=== PATIENT | female | born 1955 | race Caucasian/White ===

== ENCOUNTER → 2016-08-21 12:29 | Outpatient (CLI) | payer OTHER ==
[2015-12-18 16:10] VITALS: BMI 25.3
[~2016-08-21 12:29] MED LIST: BACLOFEN10 MG PO; BENTYL 20 MG TA20 MG PO; ESTRACE 0.5 MG0.5 MG PO; FUROSEMIDE20 MG PO; HYDROCODON-ACE1 EAC6 PO; HYDROCODON-ACE1 EAC7 PO; LANOXIN250 MCG PO; MIRALAX17 GM PO; OXYCODONE HCL5 MG PO; SOMA250 MG PO; VOLTAREN25 MG PO; XANAX0.25 MG PO
== END | disposition home or self-care (01) ==
LOC: D.CT 10:00
DX: R10.11 Right upper quadrant pain (principal); R10.84 Generalized abdominal pain

== ENCOUNTER 2016-08-21 15:23 | Inpatient (IN) | payer OTHER ==
[~2016-08-21] VITALS: Ht 162.6 cm; Wt 67.1 kg
[~2016-08-21 15:23] MED LIST changes: -BACLOFEN10 MG PO; -BENTYL 20 MG TA20 MG PO; -OXYCODONE HCL5 MG PO
[2016-08-21 17:05] LABS: BASOPHILS 0.4 % (0.0-2.0); EOSINOPHILS 3.3 % (0-7); HEMATOCRIT 48.7 % (36.0-48.0); HEMOGLOBIN 16.4 g/dL (12-16); IMMATURE GRANULOCYTES 0.2 % (0-5); LYMPHOCYTES 27.5 % (15-50); MCHC 33.7 g/dL (31.0-37.0); MCV 94.9 fL (80.0-100.0); MEAN PLATELET VOLUME 10.9 fL (7.4-10.4); MONOCYTES 6.6 % (2-11); PLATELET COUNT 259 10x3/uL (130-400); RBC 5.13 10x6/uL (4.00-5.40); RDW 12.2 % (11.5-14.5); WBC 9.9 10x3/uL (4.8-10.8)
[2016-08-21] MEDS ORDERED: BENTYL 20 MG TA20 MG PO (17:22)
[2016-08-21] MEDS ORDERED: BACLOFEN10 MG PO (17:23)
[2016-08-21 17:24] VITALS: BP 127/73; BMI 25.4
[2016-08-21 17:29] LABS: ALKALINE PHOSPHATASE 65 U/L (46-116); ALT (SGPT) 59 U/L (10-68); BILIRUBIN - TOTAL 0.43 mg/dL (0.2-1.3); CALC OSMOLALITY 276 mosm/kg (275-300); CALCIUM 9.4 mg/dL (8.5-10.1); CARBON DIOXIDE 28.6 mmol/L (21.0-32.0); CHLORIDE - SERUM 103 mmol/L (98-107); CREATININE - SERUM 0.6 mg/dL (0.6-1.3); POTASSIUM - SERUM 4.2 mmol/L (3.5-5.1); PROTEIN - SERUM 7.4 g/dL (6.4-8.2); SODIUM 140 mmol/L (136-145); UREA NITROGEN 6 mg/dL (7-18); eGFR NON AFRICAN AMERICAN > 90 mL/min (90-120)
[2016-08-21 17:30] LABS: GLUCOSE 98 mg/dL (74-106)
[2016-08-21 17:40] LABS: INR 1.2 (0.85-1.17); PROTIME 15.1 SECONDS (11.6-15.0)
[2016-08-21 17:41] LABS: APTT 32.4 SECONDS (22.8-39.4)
--- NOTE | 2016-08-21 19:50 | NUR ---
ASSESSMENT COMPLETE, A&O, AMBULATING IN ROOM, GAIT STEADY. REMINDED PT OF NOTHING TO EAT OR DRINK AFTER MN FOR PROCEDURE IN AM, PT REPEATED UNDERSTANDING. FAMILY AT BED SIDE, BED LOW, CL IN REACH. WILL CONT TO MONITOR.
[2016-08-21 20:00] VITALS: BP 104/57
--- NOTE | 2016-08-21 20:32 | NUR ---
HS MEDS GIVEN, FRESH ICE WATER AND JELLO GIVEN AT PT REQUEST.
[2016-08-22] VITALS: BP 117/67
--- NOTE | 2016-08-22 02:27 | NUR ---
LYING IN BED WITH CALL LIGHT IN REACH. WILL CONTINUE WITH PLAN OF CARE.
[2016-08-22 04:00] VITALS: BP 110/61
--- NOTE | 2016-08-22 04:56 | NUR ---
RESTING WITH EYES CLOSED, RESPERATIONS EVEN, NO S/S DISTRESS NOTED.
[2016-08-22 06:38] LABS: BASOPHILS 0.4 % (0.0-2.0); EOSINOPHILS 4.8 % (0-7); HEMATOCRIT 44.8 % (36.0-48.0); HEMOGLOBIN 14.5 g/dL (12-16); IMMATURE GRANULOCYTES 0.2 % (0-5); LYMPHOCYTES 37.8 % (15-50); MCH 30.8 pg (26.0-34.0); MCHC 32.4 g/dL (31.0-37.0); MCV 95.1 fL (80.0-100.0); MEAN PLATELET VOLUME 10.5 fL (7.4-10.4); MONOCYTES 7.6 % (2-11); NEUTROPHILS 49.2 % (40-80); PLATELET COUNT 235 10x3/uL (130-400); RBC 4.71 10x6/uL (4.00-5.40); RDW 12.3 % (11.5-14.5); WBC 9.1 10x3/uL (4.8-10.8)
[2016-08-22 07:01] LABS: ALBUMIN 3.4 g/dL (3.4-5.0); ALKALINE PHOSPHATASE 54 U/L (46-116); AMYLASE - SERUM 58 U/L (25-115); BILIRUBIN - TOTAL 0.58 mg/dL (0.2-1.3); CALC OSMOLALITY 274 mosm/kg (275-300); CALCIUM 8.8 mg/dL (8.5-10.1); CARBON DIOXIDE 26.6 mmol/L (21.0-32.0); CHLORIDE - SERUM 104 mmol/L (98-107); CHOL - HDL RATIO 6.2 ratio (2.3-4.1); CHOLESTEROL, TOTAL 192 mg/dL (0-200); CREATININE - SERUM 0.7 mg/dL (0.6-1.3); GLUCOSE 113 mg/dL (74-106); HDL CHOLESTEROL 31 mg/dL (32-96); LDL CHOLESTEROL 124 mg/dL (0-100); LIPASE 229 U/L (73-393); POTASSIUM - SERUM 3.8 mmol/L (3.5-5.1); SODIUM 138 mmol/L (136-145); TRIGLYCERIDE 185 mg/dL (30-200); UREA NITROGEN 6 mg/dL (7-18); eGFR NON AFRICAN AMERICAN 90 mL/min (90-120)
[2016-08-22 07:02] LABS: ALT (SGPT) 40 U/L (10-68)
--- NOTE | 2016-08-22 09:10 | CN ---
PATIENT NAME:VIRGIL KHAN MEDICAL RECORD: [id number] : 51 LOCATION:D. D.2139 ADMIT DATE: 08/21/16 ACCOUNT: [id number] CONSULTING PHYSICIAN: MARY CABRAL MD REFERRING PHYSICIAN: MATHEW MCMAHON MD DATE OF CONSULTATION: 08/21/2016 Surgical Consultation REASON FOR CONSULTATION: Appendicitis and abdominal mass. HISTORY OF PRESENT ILLNESS: Ms. Khan is a 60-year-old female, who was admitted to the hospital today with acute ST-T findings of appendicitis and intra-abdominal mass. The patient states she had acute onset of pain on Friday. The pain got progressively worse until we should speak on Friday. The pain has been constant since its onset on Friday. It fluctuates in intensity. She was seen by her primary care physician today who sent [facility] for CT of the abdomen and pelvis. She says that during that time, she had subjective fever and night sweats. She denies any history of weight loss. She had nausea, no vomiting, no dysuria. She denies any melena or hematochezia. She says she has been having alternating diarrhea and constipation. She has never had a colonoscopy. No history of EGD. She had a cholecystectomy 9 months ago from myself. There were no intraabdominal masses at that time. PAST MEDICAL HISTORY: Nicotine dependence and palpitations. PAST SURGICAL HISTORY: Hysterectomy and laparoscopic cholecystectomy. ALLERGIES: CHICKEN AND ____. HOME MEDICATIONS: Include digoxin, estradiol, alprazolam, hydrocodone, diclofenac, soma and Lasix. FAMILY HISTORY: Her father, uncle and brother all of heart related illnesses. She had a brother with lung disease. SOCIAL HISTORY: She is a current every day smoker. She drink alcohol occasionally. Denies any drug use. REVIEW OF SYSTEMS: A 12-point review of systems was obtained, pertinent positive and negative as per the HPI. PHYSICAL EXAMINATION: GENERAL: Well-developed and well-nourished female in moderate distress. EYES: Extraocular muscles intact. Sclerae are anicteric. EARS, NOSE AND THROAT: Mucous membranes dry. She has normal dentition. CARDIOVASCULAR: Normal sinus rhythm. LUNGS: She has got decreased breath sounds bilaterally with wheezing. ABDOMEN: Firm. She is focally tender in the right lower quadrant as well as the left lower quadrant. She has got localized guarding and rebound. Hypoactive bowel sounds. SKIN: Warm and dry. Normal turgor. EXTREMITIES: She is neurovascularly intact. Minimal peripheral edema. NEUROLOGIC: She is a GCS of 15. No focal deficits. CONSULT REPORT [id number] ERINVIRGIL Kellie LABORATORY DATA: Pending. CT of the abdomen and pelvis images were personally by the radiologist, Dr. Jones. The patient appears to have acute appendicitis as well as diffuse intraabdominal masses consistent with carcinomatosis. IMPRESSION: A 60-year-old female with abdominal pain, acute appendicitis with peritonitis and intra-abdominal mass and nicotine dependence. PLAN: 1. The patient admitted med-surg. 2. IV fluid resuscitation. 3. NPO, on bowel rest. 4. IV antibiotics. 5. IV narcotics for pain control. 6. IV antiemetics. 7. Chest x-ray and EKG. 8. Obtain consent for laparoscopic appendectomy with intraabdominal biopsies. I discussed with the patient the possibility of the prognosis of carcinomatosis. All questions were answered. Risks and benefits of the procedure were discussed with the patient. TRANSINT:[id number] Voice Confirmation ID: [id number] DOCUMENT ID: [id number] MARY CABRAL MD at 0910 CC: [id number] DICTATION DATE: 08/21/161737 MACHINE OILER: 08/21/16 190 ADM IN [facility] [address] [place] [address]
--- NOTE | 2016-08-22 09:53 | OP ---
PATIENT NAME: VIRGIL KHAN MEDICAL RECORD: [id number] :51 LOCATION:D.M2 D.2139 ADMISSION DATE:08/21/16 SURGEON: MARY CABRAL MD DATE OF OPERATION: 08/22/2016 SURGEON: Mary Cabral MD PREOPERATIVE DIAGNOSES: 1. Acute appendicitis. 2. Peritoneal carcinomatosis. POSTOPERATIVE DIAGNOSES: 1. Acute appendicitis. 2. Peritoneal carcinomatosis. PROCEDURE PERFORMED: 1. Laparoscopic appendectomy. 2. Laparoscopic liver biopsy. 3. Laparoscopic peritoneal biopsy. ANESTHESIA: General. COMPLICATIONS: None. SPECIMENS: 1. Appendix. 2. Peritoneal biopsy. 3. Liver biopsy. 4. Peritoneal cytology. ESTIMATED BLOOD LOSS: 30 cc. COMPLICATIONS: None. OPERATIVE COURSE: After consent was obtained, the patient was taken to the operating room and placed in supine position on the operating table. Next, general anesthesia was given via endotracheal intubation after the timeout was performed that confirmed the correct patient and procedure. The abdomen was prepped and draped in typical sterile fashion. Local anesthetic was injected just above the umbilicus. A stab incision was made with an 11-blade scalpel. Using a 5-mm bladeless optical trocar, the abdomen was entered under direct laparoscopic vision. Adequate pneumoperitoneum was achieved. The abdominal cavity was inspected. There was gross peritoneal studding as well as omental caking involving the liver, peritoneal surface and the majority of the omentum. Next, all 3 additional trocars were placed, a 12-mm trocar in the left lower quadrant and 5-mm trocar in the suprapubic position, 5-mm trocar in the right lower quadrant. The appendix was retrocecal and put in the hepatic flexure. The cecum was mobilized. The white line of Toldt was taken down using electrocautery. The liver was retracted and the hepatic flexure was mobilized. A mesenteric window was then created at the base of the appendix using a linear cutting stapler. The base of the appendix was transected with a blue load staple. The mesoappendix was taken with 2 firings of the white load stapler. The appendix was placed in the specimen bag and sent for permanent pathology. The right upper quadrant was then copiously irrigated and suctioned. Careful attention was paid to hemostasis, it was obtained with a combination of OPERATIVE REPORT [id number] VIRGIL KHAN electrocautdarrion. A laparoscopic liver biopsy was then performed using electrocautery. A peritoneal biopsy was also then performed using [place] dissector and electrocautery. A slight peritoneal fluid was then suctioned out the abdomen and sent for cytology. The abdominal cavity was inspected. No evidence of bowel injury. No evidence of bleeding. The 12-mm trocars removed. The 12-mm trocar site was closed and 0 Vicryl suture and a Mathew-Mingo suture passer under direct laparoscopic vision. At this time, the abdominal cavity was again inspected, all remaining fluid was irrigated. There was no evidence of bleeding and no evidence of bowel injury. All remaining trocars were removed. Abdomen was desufflated. Trocars removed. Skin was closed with 4-0 Monocryl, Mastisol and Steri-Strips. At the end of the case, all needle and instrument counts were correct. No complications occurred. The patient was extubated and transferred to the PACU in stable condition. TRANSINT:[id number] Voice Confirmation ID: [id number] DOCUMENT ID: [id number] MARY CABRAL MD at 0953 CC: [id number] DICTATION DATE: 08/22/16908 TEACHING ARTIST: 08/22/16 0928 ADM IN [facility] [facility] [id number] [place] [address]
[2016-08-22 10:27] VITALS: BP 126/62
--- NOTE | 2016-08-22 10:41 | HP ---
PATIENT: VIRGIL KHAN MEDICAL RECORD: [id number] ACCOUNT: [id number] LOCATION:[facility] D.2139 : 53 ADMISSION DATE: 08/21/16 HISTORY AND PHYSICAL EXAMINATION HISTORY OF PRESENT ILLNESS: Ms. Khan is a 60-year-old white female patient of Dr. Slater who is complaining of right lower quadrant abdominal pain, nonradiating and has been going on and off 6 months ago. She had her gallbladder removed back in December. She characterized it as sharp. She is seen today for a CT of the abdomen, which reveals acute appendicitis, also has findings that are worrisome for possible carcinomatosis. She has several masses. She has been seen in consultation by Dr. Tolentino and plans for appendectomy may have been made with a biopsy of these lesions. PAST MEDICAL HISTORY: Significant for palpitations, IBS, spastic colon and chronic low back pain. PAST SURGICAL HISTORY: Include a hysterectomy and cholecystectomy in December ____. ALLERGIES: None known. HOME MEDICATIONS: Include alprazolam 0.5 1/2 half b.i.d., estradiol 2 mg daily, Lanoxin 0.25 daily, potassium chloride 10 mEq b.i.d., [place] 10 t.i.d. p.r.n., baclofen 10 one to two t.i.d. p.r.n., dicyclomine 10 t.i.d. p.r.n. and Lasix 40 b.i.d. FAMILY HISTORY: Noncontributory. SOCIAL HISTORY: The patient is a smoker. REVIEW OF SYSTEMS: Significant for abdominal pain. She denies any weight loss, if anything has had weight gain. She denies any change in bladder or bowel habits. No chest pain or shortness of breath. PHYSICAL EXAMINATION: HEAD: Normocephalic. NECK: Soft. HEART: Regular. LUNGS: Clear. ABDOMEN: Soft. She has tenderness over McBurney's point. Bowel sounds are noted. No real masses are appreciated. IMPRESSION: 1. Acute appendicitis. 2. Possible abdominal mass worrisome for carcinomatosis. 3. Tobacco abuse with probable chronic obstructive pulmonary disease. 4. History of "irritable bowel". PLAN: IV antibiotics, surgical consult, scheduled for appendectomy with biopsy of lesions. TRANSINT:[id number] Voice Confirmation ID: [id number] DOCUMENT ID: [id number] HISTORY AND PHYSICAL [id number] VIRGIL KHAN MATTHEW DO at 1041 CC: [id number] DICTATION DATE: 08/21/161814 HIDE HOUSE SUPERVISOR: 08/21/16 [address] [facility] [address] [place] [id number]
[2016-08-22 12:11] VITALS: BP 115/57
[2016-08-22 12:49] VITALS: Ht 162.6 cm; Wt 67.1 kg
[2016-08-22 16:00] VITALS: BP 114/64
--- NOTE | 2016-08-22 19:48 | NUR ---
0645- PATIENT OFF THE UNIT TO SURGERY. 1030- PATIENT RETURNED TO THE UNIT ACCOMPANIED BY RECOVERY ROOM NURSES. SHE IS EASILY AROUSED, ON 3 LITERS OF O2 PER NC, 4 ABDOMINAL INCISIONS ARE CLOSED WITH STERISTRIPS. IVF INFUSING TO THE RIGHT FA. 1123- PATIENT HAS BEEN DRINKING SIPS OF WATER. REQUESTS PAIN MEDICATION. MS GIVEN IV. 1320- PATIENT GIVEN ORAL MEDICATIONS. IV ABTS GIVEN. 1510- PATIENT GIVEN MS FOR CONTINUED C/O PAIN. FAMILY AT THE BEDSIDE. 1701- PILLOW GIVEN FOR SPLINTING. SHE IS EMOTHIONAL FROM THE NEWS SHE WAS GIVEN TODAY REGARDING HER DIAGNOSIS. WE DISCUSSED HER VIEW OF THE SITUATION. 1800- HER USED CAR LOT ATTENDANT IS CONTROLLING HER PAIN. SHE HAS BECOME NAUSEATED AND TREATED. 1830- MANY FAMILY MEMBERS AT THE BEDSIDE.
[2016-08-22 20:00] VITALS: BP 105/55
--- NOTE | 2016-08-22 23:29 | NUR ---
PATIENT RESTING QUIETLY IN BED FAMILY AT BED SIDE, NO ACUTE DISTRESS NOTED.
[2016-08-23] VITALS: BP 97/54
--- NOTE | 2016-08-23 01:22 | NUR ---
PATIENT RESTING QUIETLY IN BED FAMILY AT BEDSIDE, NO DISTRESS NOTED/
--- NOTE | 2016-08-23 03:19 | NUR ---
PATIENT ASSISTED TO THE RESTROOM BY MILLER HEAD WET PROCESS, NO DISTRESS NOTED.
[2016-08-23 04:00] VITALS: BP 92/56
--- NOTE | 2016-08-23 05:04 | NUR ---
CALL LIGHT IN REACH, WILL CONTINUE WITH PLAN OF CARE.
[2016-08-23 07:25] LABS: BASOPHILS 0.2 % (0.0-2.0); HEMATOCRIT 42.2 % (36.0-48.0); HEMOGLOBIN 13.5 g/dL (12-16); IMMATURE GRANULOCYTES 0.3 % (0-5); LYMPHOCYTES 17.2 % (15-50); MEAN PLATELET VOLUME 10.9 fL (7.4-10.4); MONOCYTES 6.9 % (2-11); NEUTROPHILS 74.4 % (40-80); PLATELET COUNT 225 10x3/uL (130-400); RBC 4.35 10x6/uL (4.00-5.40); RDW 12.5 % (11.5-14.5); WBC 15.6 10x3/uL (4.8-10.8)
[2016-08-23 07:52] LABS: ALKALINE PHOSPHATASE 46 U/L (46-116); CALCIUM 8.4 mg/dL (8.5-10.1); CARBON DIOXIDE 28.4 mmol/L (21.0-32.0); CHLORIDE - SERUM 101 mmol/L (98-107); CREATININE - SERUM 0.7 mg/dL (0.6-1.3); GLUCOSE 113 mg/dL (74-106); POTASSIUM - SERUM 4.1 mmol/L (3.5-5.1); PROTEIN - SERUM 6.5 g/dL (6.4-8.2); SODIUM 137 mmol/L (136-145); eGFR NON AFRICAN AMERICAN 90 mL/min (90-120)
[2016-08-23 07:53] LABS: ALT (SGPT) 60 U/L (10-68); CALC OSMOLALITY 271 mosm/kg (275-300); UREA NITROGEN 4 mg/dL (7-18)
--- NOTE | 2016-08-23 07:58 | NUR ---
0710-AM ROUNDING DONE WTIH PATIENT IN RESTROOM VOIDING. DENIES NEEDS AT PRESENT TIME. IV SEEN TO RIGHT FA WITH NS INFUSING AT KVO. ON 2L PER NC, ON HEART MONITOR SHOWING SR, HR 85. WILL CONTINUE TO MONITOR.
[2016-08-23 09:07] VITALS: BP 122/56
--- NOTE | 2016-08-23 11:44 | NUR ---
0840 ANSWERED PATIENT'S LIGHT PATIENT HAD VOMITED 200 CC OF GREEN EMESIS. MEDICATED PATIENT WITH ZOFRAN 4 MG IV. PATIENT STATED SHE HAD EATEN JELLO THIS AM FOR BREAKFAST.
[2016-08-23 12:16] VITALS: BP 102/55
--- NOTE | 2016-08-23 13:30 | NUR ---
IV INFILTRATED - REPOSITIONED TO LEFT FOREARM
--- NOTE | 2016-08-23 14:07 | NUR ---
Nutrition follow-up: Diet: Clear liquids Pt still with nausea, vomiting Labs reviewed Wt: 148# Pt will need nutrition support started if diet unable to advance and/or nausea continues. Recommend ProcalAmine PPN @ 100 ml/hr with 20% 250 ml intralipids every other day. RDN following.
--- NOTE | 2016-08-23 15:36 | NUR ---
UP TO BATHROOM - VOID - NO BM - BACK TO BED - BED LOW - SCDS BACK ON - MEDS GIVEN
--- NOTE | 2016-08-23 16:27 | NUR ---
REPOSITIONED - RESTING IN BED - FAMILY AT BEDSIDE - DENIES ANY NEEDS AT THIS TIME
[2016-08-23 16:56] VITALS: BP 146/73
--- NOTE | 2016-08-23 17:21 | NUR ---
Patient Name: VIRGIL KHAN Admission Status: Urgent Accout number: [id number] Admission Date: 08-21-2016 : 1955 Admission Diagnosis:UNSPECIFIED ACUTE APPENDICITIS Attending: NATHANAEL Current LOS: 2 Anticipated DC Date: 08-24-2016 Planned Disposition: Home Primary Insurance: [employer] O POS Discharge Planning Comments: * Is the patient Alert and Oriented? Yes 0 * How many steps to enter\exit or inside your home? 4 0 * PCP DR. MCMAHON 0 * Pharmacy [facility] 0 * Preadmission Environment Home with Family 0 * ADLs Independent 0 * Equipment Cane Walker Wheelchair 0 * Other Equipment NO MEDICAL EQUIPMENT PROVIDER PREFERENCE 0 * List name and contact numbers for known caregivers / representatives who currently or will assist patient after discharge: HANNA KHAN, SPOUSE, 0 * Community resources currently utilized None 0 * Please name any agencies selected above. NONE 0 * Additional services required to return to the preadmission environment? No 0 * Can the patient safely return to the preadmission environment? Yes 0 * Has this patient been hospitalized within the prior 30 days at any hospital? No 0 CM RECEIVED REQUEST FROM DR. FARFAN TO MEET WITH PT WHO HAS INSURANCE QUESTIONS. CM MET WITH PT IN ROOM TO DISCUSS DISCHARGE PLANNING AND NEEDS. PT REPORTS LIVING AT HOME INDEPENDENTLY WITH SPOUSE AND ADULT SON. PT HAS A WALKER, WHEELCHAIR AND CANE THAT WAS HER MOTHER'S BEFORE SHE PASSED. PT HAS NO MEDICAL EQUIPMENT PROVIDER PREFERENCE AND NO OUTSIDE SERVICES ASSISTING IN THE HOME. CM DISCUSSED AVAILABILITY OF HOME HEALTH, REHAB SERVICES AND MEDICAL EQUIPMENT. PT DENIES DISCHARGE NEEDS, REPORTS HER SPOUSE WILL PICK HER UP FOR DISCHARGE HOME. PT REPORTS HAVING HER FAMILY FOR EMOTIONAL SUPPORT. PT IS CONCERNED THAT HER INSURANCE WILL NOT PAY FOR NEEDED CANCER TREATMENTS. CM ADVISED PT TO CALL HER INSURANCE COMPANY SOON POSSIBLE, DIRECTED PT TO CUSTOMER SERVICE AND BENEFITS NUMBER ON BACK OF HER INSURANCE CARD. PT REPORTS SHE IS CURRENTLY ON UNEMPLOYMENT AND DOES NOT KNOW HOW MUCH LONGER HER POLICY IS IN EFFECT. CM REFERRED PT TO HER BENEFITS NUMBER ON HER INSURANCE CARD. CM DISCUSSED HOW TO ACCESS MEDICAID APPLICATION AND PT IS AWARE OF THE LOCATION OF THE [facility] DEPARTMENT OF HUMAN SERVICES OFFICE. CM DISCUSSED HOW TO EXPLORE DISABILITY THROUGH THE SOCIAL SECURITY WEBSITE AND WHERE THE SOCIAL SECURITY OFFICE IS LOCATED AT IN [place]. PT THANKED CM FOR ASSISTANCE. CM PROVIDED ALL INFORMATION IN WRITING IN ADDITION TO VERBAL DISCUSSION PT WAS VERY EMOTIONAL AT TIME OF CM CONSULT. CM PROVIDED PT WITH CM CONTACT INFORMATION. PT TO DISCHARGE HOME WITH FAMILY, DENIES DISCHARGE NEEDS AT THIS TIME. CM TO FOLLOW AND ASSIST NEEDED. Pharmacist Intern: Reagan Coleman
--- NOTE | 2016-08-23 18:51 | NUR ---
UP IN BED VISITING WITH FAMILY - DENIES ANY NEEDS AT THIS TIME
[2016-08-23 20:00] VITALS: BP 116/60
--- NOTE | 2016-08-23 21:55 | NUR ---
RESTING IN BED EYES CLOSED. AROUSES TO VOICE. ALERT ORIENTED CONVERSANT. PROVIDED IV ZOFRAN PER PT REQUEST. HELD SCHEDULED NORSANDI, PT HAS DILAUDID MATERNAL FETAL PHYSICIAN
--- NOTE | 2016-08-23 23:45 | NUR ---
RESTING IN BED RESPIRATIONS OBSERVED. EVEN AND UNLABORED. CONTINUE TO MONITOR
[2016-08-24] VITALS: BP 118/55
[2016-08-24 04:00] VITALS: BP 109/56
--- NOTE | 2016-08-24 07:47 | NUR ---
AM ROUNDING- PT LAYING IN BED ON BACK WITH EYES CLOSED RESTING. ON MONITOR SHOWING SR, HR 87. IV SEEN TO LEFT AC WITH NS RUNNING AT KVO (15CC). TEACHING MUSIC LESSONS SEEN WITH DILAUDID. DOSE IS 0.2MG [id number] WITH 4MG LOCKOUT IN FOUR HOURS. ON 02 AT 2L VIA NC. SCDS ARE ON. PT IS UP WITH ASSIST. PER REPORT FROM PUMPING STATION SUPERVISOR NURSE KWASI, PT HAD APPENDECTOMY YESTERDAY FOR APPENDICITIS PT CAME IN WITH ON 08/22/16. NO NEED AT CURRENT TIME. WILL CONTINUE TO MONITOR.
[2016-08-24 08:00] VITALS: BP 98/55
[2016-08-24 08:41] LABS: BASOPHILS 0.2 % (0.0-2.0); EOSINOPHILS 4.6 % (0-7); HEMATOCRIT 40.7 % (36.0-48.0); HEMOGLOBIN 13.4 g/dL (12-16); IMMATURE GRANULOCYTES 0.3 % (0-5); LYMPHOCYTES 14.4 % (15-50); MCH 31.4 pg (26.0-34.0); MCHC 32.9 g/dL (31.0-37.0); MCV 95.3 fL (80.0-100.0); MEAN PLATELET VOLUME 11.2 fL (7.4-10.4); MONOCYTES 6.6 % (2-11); NEUTROPHILS 73.9 % (40-80); PLATELET COUNT 218 10x3/uL (130-400); RBC 4.27 10x6/uL (4.00-5.40); RDW 12.3 % (11.5-14.5); WBC 15.4 10x3/uL (4.8-10.8)
[2016-08-24 09:07] LABS: ALBUMIN 2.9 g/dL (3.4-5.0); ALKALINE PHOSPHATASE 51 U/L (46-116); CALC OSMOLALITY 264 mosm/kg (275-300); CALCIUM 8.6 mg/dL (8.5-10.1); CARBON DIOXIDE 32.3 mmol/L (21.0-32.0); CHLORIDE - SERUM 96 mmol/L (98-107); CREATININE - SERUM 0.6 mg/dL (0.6-1.3); GLUCOSE 101 mg/dL (74-106); POTASSIUM - SERUM 3.6 mmol/L (3.5-5.1); PROTEIN - SERUM 6.7 g/dL (6.4-8.2); SODIUM 134 mmol/L (136-145); UREA NITROGEN 3 mg/dL (7-18); eGFR NON AFRICAN AMERICAN > 90 mL/min (90-120)
[2016-08-24 09:10] LABS: ALT (SGPT) 38 U/L (10-68)
[2016-08-24 12:00] VITALS: BP 99/60
--- NOTE | 2016-08-24 13:05 | NUR ---
PT IS UP WALKING WITH PHYSICAL THERAPY.
[2016-08-24 16:00] VITALS: BP 175/58
--- NOTE | 2016-08-24 18:16 | NUR ---
PT LAYING IN BED ON BACK RESTING. DENIES ANY NEED AT CURRENT TIME. FAMILY MEMBER AT BEDSIDE. WILL CONTINUE TO MONITOR.
--- NOTE | 2016-08-24 19:45 | NUR ---
INTRODUCED MYSELF TO PT PRIMARY RN FOR [facility] SHIFT. PT IS ALERT AND ORIENTED RESTING QUIETLY IN BED. RR NONLABORED WITH NC @2L IN PLACE. PT HAS A L.AC PIV WITH DRSG CDI AND SWAB CAPS IN USE. PT HAS NS @15ML/HR TO RUN WITH PUBLICATION SPECIALIST OF DILAUDID. PT DENIES ANY CURRENT PAIN AND STATES THE PUBLICATION SPECIALIST PUMP CONTROLS ALL OF HER PAIN. PTS ABDOMEN IS SLIGHTLY DISTENDED AND TENDER BUT BS ACTIVE X4. 4 SMALL INCISIONS NOTED WITH STERI STRIPS IN PLACE, CDI. PT DENIES ANY CURRENT NEEDS AT THIS TIME. CL IN REACH, BED IN LOWEST, SIDE RAILS X2. WILL CPOC.
--- NOTE | 2016-08-24 21:00 | NUR ---
ADMINISTERED NIGHTLY MEDS. PT REFUSED HER MILK OF MAGNESIUM AND STATED HER BOWELS HAVE BEEN MOVING WITHOUT ANY STRAINING OR NEED FOR A LAXATIVE. PT ALSO REFUSED HER SCHEDULED NORCO R/T MANUFACTURER PUMP PROVIDING ENOUGH PAIN RELIEF. PT RESTING AND DENIES ANY FURTHER NEEDS AT THIS TIME. CL IN REACH, BED IN LOWEST, SIDE RAILS X2. WILL CTM.
[2016-08-24 21:13] VITALS: BP 89/62
--- NOTE | 2016-08-24 23:25 | NUR ---
INITIATED PTS IVPB ZOSYN INFUSING OVER 30MINS. PT RESTING QUIETLY IN BED WITH EYES CLOSED. NO S/S OF DISTRESS OR ANY CURRENT NEEDS AT THIS TIME. CL IN REACH, WILL CTM.
[2016-08-25 00:43] VITALS: BP 101/57
--- NOTE | 2016-08-25 03:29 | NUR ---
PT RESTING QUIETLY IN BED WITH EYES CLOSED. RR NONLABORED ON RA. NO S/S OF DISTRESS OR ANY CURRENT NEEDS NOTED AT THIS TIME. WILL CTM.
[2016-08-25 05:05] VITALS: BP 115/64
--- NOTE | 2016-08-25 05:17 | NUR ---
ADMINISTERED PTS IVPB ZOSYN INFUSING OVER 30 MINS. CHANGED OUT PTS SANITATION TRUCK DRIVER SYRINGE R/T IT BEING EMPTY. PT RESTING QUIETLY IN BED ALERT AND WATCHING TV. NO FURTHER NEEDS AT THIS TIME. CL IN REACH, WILL CPOC.
[2016-08-25 06:30] LABS: BASOPHILS 0.2 % (0.0-2.0); EOSINOPHILS 6.9 % (0-7); HEMATOCRIT 39.7 % (36.0-48.0); IMMATURE GRANULOCYTES 0.2 % (0-5); LYMPHOCYTES 18.5 % (15-50); MCH 31.3 pg (26.0-34.0); MCHC 32.7 g/dL (31.0-37.0); MCV 95.4 fL (80.0-100.0); MEAN PLATELET VOLUME 10.9 fL (7.4-10.4); MONOCYTES 8.3 % (2-11); NEUTROPHILS 65.9 % (40-80); PLATELET COUNT 227 10x3/uL (130-400); RBC 4.16 10x6/uL (4.00-5.40); RDW 12.2 % (11.5-14.5)
[2016-08-25 06:39] LABS: ALBUMIN 2.8 g/dL (3.4-5.0); ALKALINE PHOSPHATASE 52 U/L (46-116); ALT (SGPT) 33 U/L (10-68); CALC OSMOLALITY 272 mosm/kg (275-300); CALCIUM 8.5 mg/dL (8.5-10.1); CARBON DIOXIDE 33.4 mmol/L (21.0-32.0); CHLORIDE - SERUM 98 mmol/L (98-107); CREATININE - SERUM 0.6 mg/dL (0.6-1.3); GLUCOSE 99 mg/dL (74-106); POTASSIUM - SERUM 3.6 mmol/L (3.5-5.1); PROTEIN - SERUM 6.1 g/dL (6.4-8.2); SODIUM 138 mmol/L (136-145); eGFR NON AFRICAN AMERICAN > 90 mL/min (90-120)
[2016-08-25 06:40] LABS: UREA NITROGEN 5 mg/dL (7-18)
--- NOTE | 2016-08-25 07:15 | NUR ---
RECEIVED REPORT. ASSUMED CARE OF PATIENT. CALL LIGHT WITHIN REACH. RESTING WITH EYES CLOSED. RESP EVEN AND UNLABORED. NO DISTRESS. SCD'S PATENT TO BILATERAL LOWER EXTREMITIES. SENIOR ENGINEERING MANAGER PUMP PATENT.
[2016-08-25 08:00] VITALS: BP 91/54
--- NOTE | 2016-08-25 09:56 | NUR ---
PATIENT OOB AMBULATING WITH PT AT THIS TIME. NO DISTRESS.
--- NOTE | 2016-08-25 11:01 | NUR ---
MEDICATED FOR NAUSEA/VOMITING AT THIS TIME.
[2016-08-25 12:00] VITALS: BP 115/68
--- NOTE | 2016-08-25 13:18 | NUR ---
PATIENT RESTING IN BED WITH EYES OPEN. STATES SHE IS TIRED. ENCOURAGED PATIENT TO TRY AND NAP WHILE SHE HAS THE OPPORTUNITY. FAMILY AT BEDSIDE. CALL LIGHT WITHIN REACH. NO DISTRESS.
--- NOTE | 2016-08-25 15:07 | NUR ---
MEDICATED FOR NAUSEA AT THIS TIME. SITTING IN BED. NO ACUTE DISTRESS. FAMILY AT BEDSIDE.
[2016-08-25 16:00] VITALS: BP 102/57
--- NOTE | 2016-08-25 18:24 | NUR ---
PATIENT SITTING UP IN BED WITH ATTENTION TOWARD TELEVISION. CALL LIGHT WITHIN REACH. DENIES NEEDS. NO DISTRESS.
[2016-08-25 19:00] VITALS: BP 161/61
--- NOTE | 2016-08-25 19:54 | NUR ---
PT LYING IN BED, EYES CLOSED, RESPIRATIONS EVEN AND UNLABORED. PT IS EASILY ROUSABLE TO VERBAL STIMULI, DENIES ANY NEEDS AT THIS TIME. PT IS GROGGY BUT STATES SHE IS JUST TIRED. WILL CONTINUE TO MONITOR CLOSELY. BED LOW, CALL LIGHT IN REACH, SIDE RAILS X 2, HOB 20 DEGREES.
--- NOTE | 2016-08-25 23:43 | NUR ---
PT DID AWAKEN, ALERT, ORIENTED, STATED HER PAIN IS MODERATELY CONTROLLED WITH THE LEGAL RECORDS CLERK DILAUDID, BUT THAT SHE IS TRYING NOT TO USE IT MUCH. PT STATES THE NORCO HELPS MINIMALLY. I ALSO GAVE PT AN ICE PACK TO LAY OVER HER ABDOMEN FOR POSSIBLE PAIN RELIEF. PT DENIES ANY NEEDS. CONTINUE TO MONITOR CLOSELY.
[2016-08-26] VITALS: BP 97/64
[2016-08-26 04:00] VITALS: BP 129/63
[2016-08-26 05:18] LABS: BASOPHILS 0.3 % (0.0-2.0); EOSINOPHILS 7.4 % (0-7); HEMATOCRIT 41.8 % (36.0-48.0); HEMOGLOBIN 13.8 g/dL (12-16); IMMATURE GRANULOCYTES 0.2 % (0-5); LYMPHOCYTES 23.4 % (15-50); MCH 31.4 pg (26.0-34.0); MEAN PLATELET VOLUME 10.8 fL (7.4-10.4); MONOCYTES 9.7 % (2-11); PLATELET COUNT 287 10x3/uL (130-400); RDW 12.3 % (11.5-14.5)
[2016-08-26 05:40] LABS: ALBUMIN 2.9 g/dL (3.4-5.0); ALKALINE PHOSPHATASE 66 U/L (46-116); ALT (SGPT) 33 U/L (10-68); BILIRUBIN - TOTAL 0.88 mg/dL (0.2-1.3); CALC OSMOLALITY 272 mosm/kg (275-300); CALCIUM 8.9 mg/dL (8.5-10.1); CARBON DIOXIDE 35.2 mmol/L (21.0-32.0); CHLORIDE - SERUM 97 mmol/L (98-107); CREATININE - SERUM 0.5 mg/dL (0.6-1.3); GLUCOSE 91 mg/dL (74-106); POTASSIUM - SERUM 4.3 mmol/L (3.5-5.1); PROTEIN - SERUM 6.5 g/dL (6.4-8.2); SODIUM 138 mmol/L (136-145); UREA NITROGEN 5 mg/dL (7-18); eGFR NON AFRICAN AMERICAN > 90 mL/min (90-120)
--- NOTE | 2016-08-26 05:43 | NUR ---
PT LYING IN BED, HOB 30 DEGREES, EYES CLOSED, RESPIRATIONS EVEN AND UNLABORED, PILLOW OVER ABDOMEN FOR COMFORT. PT IS EASILY ROUSABLE TO VERBAL STIMULI, DENIES ANY NEEDS. PT DID STATE THAT THE ICE PACK IS HELPING WITH HER ABDOMINAL INCISION PAIN. CONTINUE TO MONITOR CLOSELY. BED LOW, CALL LIGHT IN REACH, SIDE RAILS X 2.
[2016-08-26 09:05] VITALS: BP 100/58
--- NOTE | 2016-08-26 11:30 | NUR ---
INITIATED PTS IVPB ZOSYN INFUSING VIA L.FA PIV WITH DRSG CDI AND SWAB CAPS IN USE. PULLED PT UP IN BED AND REPOSITIONED HER FOR COMFORT. PROVIDED PT WITH AN ICE PACK TO HER ABDOMEN TO THE R.SIDE TO HELP WITH DISCOMFORT. PT HAS A NEEDLE PUNCH MACHINE OPERATOR HELPER PUMP AND HAS BEEN USING IT PRN. PT STATES SHE IS COMFORTABLE AND VOICED THANKS. CL IN REACH, AT BEDSIDE. WILL CTM.
[2016-08-26 11:59] VITALS: BP 115/66
[2016-08-26] MEDS ORDERED: OXYCODONE HCL5 MG PO (13:30)
--- NOTE | 2016-08-26 14:19 | NUR ---
D/C PTS UM RN PUMP ORDERED. WASTED 22CC OF DILAUDID. UNABLE TO DOCUMENT IN PYXIS R/T DRUG OPTION NOT BEING FOUND. SHADE IZAGUIRRE RN WITNESSED WASTE AND IT WAS PLACED IN SHARPS. FLUSHED PTS LINE AND SL HER L.FA PIV.
--- NOTE | 2016-08-26 15:47 | NUR ---
D/C PTS L.FA PIV WITH CATHETER TIP FULLY INTACT. DISCHARGE TEACHING DONE AND PAPERS SIGNED. PT READY TO GO HOME. HERE TO TAKE HER. NO FURTHER NEEDS.
== END 2016-08-26 15:50 | disposition home or self-care (01) | DRG 342 ==
LOC: OBSVTIME → D.M2 15:23 → D.OPS 15:23 → D.M2 15:23 → UNDOADMOB 15:23 → OBSVTIME 15:24 → EDSTATUS 08-22 07:30 → D.M2 08-23 17:37
PROVIDERS: Family Medicine; Surgery; ADMIT Family Medicine
PROC: 0DTJ4ZZ Resection of Appendix, Percutaneous Endoscopic Approach (ICD-10-PCS; principal; 2016-08-22 07:30)
PROC: 0WBH4ZX Excision of Retroperitoneum, Percutaneous Endoscopic Approach, Diagnostic (ICD-10-PCS; principal; 2016-08-22 07:30)
PROC: 0FB04ZX Excision of Liver, Percutaneous Endoscopic Approach, Diagnostic (ICD-10-PCS; principal; 2016-08-22 07:30)
DX: K35.80 Unspecified acute appendicitis (principal); C78.6 Secondary malignant neoplasm of retroperitoneum and peritoneum; F17.203 Nicotine dependence unspecified, with withdrawal; J44.9 Chronic obstructive pulmonary disease, unspecified

== ENCOUNTER 2016-09-20 10:31 | Day surgery (SDC) | payer OTHER ==
[~2016-09-20] VITALS: Ht 162.6 cm; Wt 62.1 kg
[~2016-09-20 10:31] MED LIST changes: +BACLOFEN10 MG PO; +BENTYL 20 MG TA20 MG PO; +OXYCODONE HCL5 MG PO
[2016-09-20 12:02] VITALS: BP 107/57; Ht 162.6 cm; Wt 62.1 kg
[2016-09-20 12:10] LABS: BASOPHILS 0.3 % (0.0-2.0); EOSINOPHILS 2.7 % (0-7); HEMATOCRIT 44.3 % (36.0-48.0); HEMOGLOBIN 14.6 g/dL (12-16); IMMATURE GRANULOCYTES 0.3 % (0-5); LYMPHOCYTES 26.4 % (15-50); MCH 31.1 pg (26.0-34.0); MCV 94.3 fL (80.0-100.0); MEAN PLATELET VOLUME 10.8 fL (7.4-10.4); MONOCYTES 10.4 % (2-11); NEUTROPHILS 59.9 % (40-80); RDW 12.1 % (11.5-14.5); WBC 11.4 10x3/uL (4.8-10.8)
[2016-09-20 12:13] LABS: PLATELET COUNT 216 10x3/uL (130-400)
[2016-09-20 12:19] LABS: APTT 29.4 SECONDS (22.8-39.4); INR 1.03 (0.85-1.17); PROTIME 13.4 SECONDS (11.6-15.0)
[2016-09-20 12:20] LABS: CALC OSMOLALITY 269 mosm/kg (275-300); CALCIUM 9.1 mg/dL (8.5-10.1); CARBON DIOXIDE 29.6 mmol/L (21.0-32.0); CHLORIDE - SERUM 99 mmol/L (98-107); CREATININE - SERUM 0.5 mg/dL (0.6-1.3); GLUCOSE 81 mg/dL (74-106); POTASSIUM - SERUM 3.9 mmol/L (3.5-5.1); SODIUM 137 mmol/L (136-145); UREA NITROGEN 4 mg/dL (7-18); eGFR NON AFRICAN AMERICAN > 90 mL/min (90-120)
[2016-09-20] MEDS ORDERED: OXYCODONE HCL5 MG PO (15:30)
--- NOTE | 2016-09-20 17:04 | NUR ---
IV DC WITH CATHER TIP INTACT
--- NOTE | 2016-09-20 23:04 | OP ---
PATIENT NAME: VIRGIL KHAN MEDICAL RECORD: [id number] :51 LOCATION:D.[facility]ER[facility] ADMISSION DATE: SURGEON: MARY CABRAL MD DATE OF OPERATION: 09/20/2016 SURGEON: Mary Cabral MD PREOPERATIVE DIAGNOSIS: Peritoneal carcinomatosis. POSTOPERATIVE DIAGNOSIS: Peritoneal carcinomatosis. PROCEDURE PERFORMED: 1. Insertion of a tunneled PowerPort. 2. Immediate interpretation of fluoroscopy. ANESTHESIA: General. COMPLICATIONS: None. SPECIMENS: None. Case was clean. ESTIMATED BLOOD LOSS: 10 cc. OPERATIVE COURSE: After consent was obtained, the patient was taken to the operating room and placed in supine position on the operating table. Next, general anesthesia was given via endotracheal intubation after a timeout was performed to confirm the correct patient and procedure. The left chest and neck were then prepped and draped in typical sterile fashion. A 30 cc of local anesthetic were injected in the left chest wall. The left subclavian vein was cannulated on the first pass. Under fluoroscopy, a guidewire was placed through the needle and advanced to the atriocaval junction. The needle was removed. Next, the stab incision was made with 11-blade scalpel. The dilator and sheath were passed over the wire in a standard Seldinger fashion. Next, a skin incision was made on the left chest wall with a 15 blade scalpel. Dissection continued on the level of the pectoralis fascia using electrocautery. A pocket was created using a combination of blunt dissection and electrocautery. The catheter was then tunneled from the skin incision to the needle stick site. The catheter was then passed to the wire and dilator was removed. The catheter was placed to the breakaway sheath and advanced to the atriocaval junction. Under fluoroscopy, the breakaway sheath was removed. The port was then secured to the pectoralis fascia using interrupted 2-0 Prolene suture. The port was accessed, blood was aspirated, it was then flushed with 5000 units of heparin and 30 cc of saline. The subcutaneous tissue was then closed with 3-0 Vicryl suture. The skin was closed with 4-0 Monocryl, Mastisol, and Steri-Strips. At the end of the case, all needle and instrument counts were correct. No complications occurred. The patient was extubated and transferred to the PACU in stable condition. TRANSINT:[id number] Voice Confirmation ID: [id number] DOCUMENT ID: [id number] OPERATIVE REPORT [id number] VIRGIL KHAN,MARY Lao MD at 2304 CC: [id number] DICTATION DATE: 09/20/16 1529 MATERIAL CHASER: 09/20/16 1754 [facility] 09/20/16 [place] [id number] [place] [id number]
== END 2016-09-20 17:00 | disposition home or self-care (01) ==
LOC: D.OPS 10:31
PROVIDERS: Anesthesiology
DX: C78.6 Secondary malignant neoplasm of retroperitoneum and peritoneum (principal)

== ENCOUNTER 2016-12-31 13:55 | Inpatient (IN) | payer OTHER ==
[~2016-12-31] VITALS: Ht 162.6 cm; Wt 52.6 kg
[2016-12-31 16:14] LABS: EOSINOPHILS 1.4 % (0-7); HEMATOCRIT 40.4 % (36.0-48.0); HEMOGLOBIN 13.4 g/dL (12-16); LYMPHOCYTES 35.6 % (15-50); MCH 32.1 pg (26.0-34.0); MCHC 33.2 g/dL (31.0-37.0); MCV 96.9 fL (80.0-100.0); MEAN PLATELET VOLUME 11.8 fL (7.4-10.4); MONOCYTES 2.8 % (2-11); NEUTROPHILS 59.2 % (40-80); RBC 4.17 10x6/uL (4.00-5.40); WBC 5.1 10x3/uL (4.8-10.8)
[2016-12-31 16:29] LABS: APPEARANCE CLEAR (CLEAR); BILIRUBIN NEGATIVE (NEGATIVE); COLOR YELLOW (YELLOW); GLUCOSE NEGATIVE (NEGATIVE); KETONE NEGATIVE (NEGATIVE); LEUKOCYTE ESTERASE NEGATIVE (NEGATIVE); NITRITE NEGATIVE (NEGATIVE); PROTEIN NEGATIVE (NEGATIVE); UROBILINOGEN NORMAL (NORMAL)
[2016-12-31 16:38] LABS: ALBUMIN 2.7 g/dL (3.4-5.0); ALKALINE PHOSPHATASE 91 U/L (46-116); ALT (SGPT) 22 U/L (10-68); BILIRUBIN - TOTAL 0.54 mg/dL (0.2-1.3); CALC OSMOLALITY 272 mosm/kg (275-300); CALCIUM 7.9 mg/dL (8.5-10.1); CARBON DIOXIDE 25.1 mmol/L (21.0-32.0); CHLORIDE - SERUM 105 mmol/L (98-107); CREATININE - SERUM 0.4 mg/dL (0.6-1.3); GLUCOSE 105 mg/dL (74-106); LIPASE 220 U/L (73-393); POTASSIUM - SERUM 3.1 mmol/L (3.5-5.1); PROTEIN - SERUM 6.7 g/dL (6.4-8.2); SODIUM 138 mmol/L (136-145); UREA NITROGEN 4 mg/dL (7-18); eGFR NON AFRICAN AMERICAN > 90 mL/min (90-120)
[2016-12-31 18:51] LABS: PLATELET COUNT 44 10x3/uL (130-400); PLATELET ESTIMATE DECREASED
--- NOTE | 2016-12-31 20:10 | NUR ---
REPORT RECEIVED FROM TRISHA RIDDLE IN ER. REPORT GIVEN TO TRACEY GILMAN.
[2016-12-31] MEDS ORDERED: HYDROCODONE-APA1 TAB PO (20:56)
[2016-12-31 21:53] VITALS: BP 142/81; BMI 19.9
[2017-01-01 04:00] VITALS: BP 118/63
[2017-01-01 08:26] VITALS: BP 137/72
[2017-01-01 10:05] LABS: BASOPHILS 0.8 % (0-2); EOSINOPHILS 2.1 % (0-7); HEMATOCRIT 41.5 % (36.0-48.0); HEMOGLOBIN 13.7 g/dL (12-16); LYMPHOCYTES 41.7 % (15-50); MCH 31.6 pg (26.0-34.0); MCV 95.8 fL (80.0-100.0); MONOCYTES 3.7 % (2-11); NEUTROPHILS 51.7 % (40-80); RBC 4.33 10x6/uL (4.00-5.40); RDW 15.8 % (11.5-14.5)
[2017-01-01 10:14] LABS: WBC 3.8 10x3/uL (4.8-10.8)
[2017-01-01 10:26] LABS: ALKALINE PHOSPHATASE 99 U/L (46-116); ALT (SGPT) 27 U/L (10-68); BILIRUBIN - TOTAL 0.63 mg/dL (0.2-1.3); CALC OSMOLALITY 271 mosm/kg (275-300); CALCIUM 8.6 mg/dL (8.5-10.1); CARBON DIOXIDE 25.6 mmol/L (21.0-32.0); CHLORIDE - SERUM 103 mmol/L (98-107); CREATININE - SERUM 0.5 mg/dL (0.6-1.3); GLUCOSE 89 mg/dL (74-106); PROTEIN - SERUM 6.9 g/dL (6.4-8.2); SODIUM 138 mmol/L (136-145); UREA NITROGEN 4 mg/dL (7-18); eGFR NON AFRICAN AMERICAN > 90 mL/min (90-120)
[2017-01-01 10:27] LABS: POTASSIUM - SERUM 3.9 mmol/L (3.5-5.1)
[2017-01-01 10:31] LABS: PLATELET COUNT 37 10x3/uL (130-400)
[2017-01-01 12:15] VITALS: BP 134/72
--- NOTE | 2017-01-01 12:26 | NUR ---
PT SEEN AND ASSESSED EARLY THIS AM. STATES HEADACHE PAIN 7-ICE PACK GIVEN FOR PAIN SINCE PT REFUSED MORPHINE. NO N/V STATED OR VOICED. REASSESSED HEADACHE AT 0900 AND STATES PAIN DECREASED TO 2. CALL LIGHT IN REACH. REFUSES SCDS
--- NOTE | 2017-01-01 13:14 | NUR ---
Patient Name: VIRGIL KHAN Admission Status: ER Accout number: [id number] Admission Date: 12-31-2016 : 1955 Admission Diagnosis: Attending: SARWAT Current LOS: 1 Anticipated DC Date: 01-03-2017 Planned Disposition: Home Primary Insurance[facility] [employer] [facility] POS Discharge Planning Comments: CM MET WITH PATIENT REGARDING D/C NEEDS AND PLANS. PATIENT STATED HER SPOUSE (HANNA) WILL DRIVE HER HOME AT DISCHARGE. PATIENT STATED SHE HAS A RAMP TO ENTER HOME AND NO STAIRS INSIDE. PATIENT IS INDEPENDENT WITH HER CARE AND HAS A CANE, BS COMMODE, WALKER, WHEELCHAIR, AND SHOWER CHAIR AT HOME IF NEEDED. PATIENTS PCP IS DR. MCMAHON AND USES [facility]. PATIENT DOES NOT WANT HOME HEALTH AT THIS TIME. CM WILL CONTINUE TO FOLLOW PATIENT WITH D/C NEEDS AND PLANS. PCP DR. MCMAHON [facility]- [phone] HANNA (SPOUSE) [phone] Automotive Finance Manager: Kavitha Meredith Is the patient Alert and Oriented? Yes 0 * How many steps to enter\exit or inside your home? RAMP 0 * PCP DR. MCMAHON 0 * Pharmacy [facility] 0 * Preadmission Environment Home with Family 0 * ADLs Independent 0 * Equipment Bedside Commode Cane Shower Chair Walker Wheelchair 0 * List name and contact numbers for known caregivers / representatives who currently or will assist patient after discharge: HANNA (SPOUSE) ([phone]) 0 * Community resources currently utilized None 0 * Additional services required to return to the preadmission environment? Yes 0 * Can the patient safely return to the preadmission environment? Yes 0 * Has this patient been hospitalized within the prior 30 days at any hospital? No 0 Grand Total: 0
[2017-01-01 15:04] VITALS: Ht 162.6 cm; Wt 52.6 kg
--- NOTE | 2017-01-01 18:14 | NUR ---
FIXING TO GIVE DILAUDID FOR PAIN AND DROPPED VIAL IN ROOM AND BROKE. Dale MEJIA LPN WITNESSED. NEW VIAL OBTAINED AND GIVEN
--- NOTE | 2017-01-01 18:35 | NUR ---
PT STATES ABDOMEN PAIN IS AT 8/10. DILAUDID WAS GIVEN. STATES PAIN NOW 5/10 AND SLEEPY. CALL LIGHT IN REACH
[2017-01-01 19:00] VITALS: BP 114/61
--- NOTE | 2017-01-01 19:15 | NUR ---
BEDSIDE REPORT RECEIVED AND CARE OF PT ASSUMED. PT LYING IN SEMI AGRAWAL'S POSITION WATCHING TV. LEFT IP ACCESSED WITH NS INFUSING AT 75 ML / HR. WILL MONITOR CLOSELY FOR NEEDS. CALL LIGHT WITHIN REACH.
--- NOTE | 2017-01-01 21:30 | NUR ---
HS MEDICATIONS GIVEN TO INCLUDE NICODERM PATCH PER PT REQUEST. WILL CONTINUE TO MONITOR FOR NEEDS.
--- NOTE | 2017-01-02 03:13 | NUR ---
GAVE DILAUDID 1 MG IVP PER PT REQUEST FOR PAIN IN ABDOMEN AT LEVEL 7/10. WILL MONITOR FOR EFFECTIVENESS. SIDE RAILS UP X2 FOR SAFETY.
[2017-01-02 04:00] VITALS: BP 137/75
--- NOTE | 2017-01-02 04:16 | NUR ---
GAVE ZOFRAN 8 MG IVP PER PT REQUEST FOR NAUSEA..PER PRN ORDER. WILL CONTINUE TO MONITOR CLOSLEY FOR NEEDS. CALL LIGHT WITHIN REACH.
[2017-01-02 06:06] LABS: BASOPHILS 0.9 % (0-2); EOSINOPHILS 2.5 % (0-7); HEMATOCRIT 38.3 % (36.0-48.0); HEMOGLOBIN 12.5 g/dL (12-16); IMMATURE GRANULOCYTES 0.2 % (0-5); LYMPHOCYTES 37.7 % (15-50); MCH 31.3 pg (26.0-34.0); MCHC 32.6 g/dL (31.0-37.0); MCV 95.8 fL (80.0-100.0); MEAN PLATELET VOLUME 10.8 fL (7.4-10.4); MONOCYTES 5.9 % (2-11); NEUTROPHILS 52.8 % (40-80); RDW 15.7 % (11.5-14.5); WBC 4.4 10x3/uL (4.8-10.8)
[2017-01-02 06:20] LABS: PLATELET COUNT 33 10x3/uL (130-400)
[2017-01-02 06:31] LABS: ALBUMIN 2.9 g/dL (3.4-5.0); ALKALINE PHOSPHATASE 91 U/L (46-116); ALT (SGPT) 22 U/L (10-68); BILIRUBIN - TOTAL 0.51 mg/dL (0.2-1.3); CALC OSMOLALITY 275 mosm/kg (275-300); CALCIUM 8.3 mg/dL (8.5-10.1); CARBON DIOXIDE 27.2 mmol/L (21.0-32.0); CHLORIDE - SERUM 104 mmol/L (98-107); CREATININE - SERUM 0.5 mg/dL (0.6-1.3); GLUCOSE 112 mg/dL (74-106); PROTEIN - SERUM 6.9 g/dL (6.4-8.2); SODIUM 139 mmol/L (136-145); UREA NITROGEN 4 mg/dL (7-18); eGFR NON AFRICAN AMERICAN > 90 mL/min (90-120)
[2017-01-02 06:33] LABS: POTASSIUM - SERUM 3.3 mmol/L (3.5-5.1)
--- NOTE | 2017-01-02 06:49 | NUR ---
POTASSIUM LEVEL 3.3 THIS AM. PER ELECTROLYTE PROTOCAL 40 MEQ PO GIVEN MIXED WITH ORANGE JUICE. WILL RE-CHECK LEVEL IN 4 HOURS.
[2017-01-02 08:31] VITALS: BP 141/75
[2017-01-02] MEDS ORDERED: NICODERM C1 PATCH .1 TRANSDERM (11:53)
[2017-01-02] MEDS ORDERED: FLAGYL500 MG PO (11:55)
[2017-01-02] MEDS ORDERED: HYSINGLA ER30 MG PO ×2 (11:56→11:58)
[2017-01-02 12:45] VITALS: BP 119/79
--- NOTE | 2017-01-02 13:10 | NUR ---
CM NOTE: PT BEING DISCHARGED HOME WITH FAMILY DRIVING. PT DENIES HH & HAS NO OTHER NEEDS FOR DISCHARGE HUAN ROSA RN
--- NOTE | 2017-01-02 13:20 | NUR ---
FLUSHED PORT WITH 10ML SALINE FLUSH, THEN WITH 3ML HEPARIN FLUSH. D/C RICE NEEDLE. CLEANED SITE WITH CHLORASEPTIC FOR 30 SECONDS THEN APPLIED A 2X2 STERILE GAUZE AND TEGADERM. DISCHARGE INSTRUCTIONS COMPLETED WITH PATIENT. PATIENT VERBALIZED UNDERSTANDING AND DENIES QUESTIONS. STRESSED TO PATIENT THE IMPORTANCE OF DISCONTINUING THE NORCO-10 SHE TAKES PRN AND ONLY TAKING THE HYDROCODONE ER DAILY. PATIENT VERBALIZED UNDERSTANDING AND DENIES QUESTIONS.
--- NOTE | 2017-01-02 13:50 | NUR ---
PATIENT LEFT VIA WHEELCHAIR.
== END 2017-01-02 13:50 | disposition home or self-care (01) | DRG 392 ==
LOC: D.ER 13:55 → D.MS 19:55
PROVIDERS: Emergency Medicine; ADMIT Family Medicine
DX: K57.92 Diverticulitis of intestine, part unspecified, without perforation or abscess without bleeding (principal); C78.6 Secondary malignant neoplasm of retroperitoneum and peritoneum; F17.203 Nicotine dependence unspecified, with withdrawal; K52.9 Noninfective gastroenteritis and colitis, unspecified; J44.9 Chronic obstructive pulmonary disease, unspecified; F41.9 Anxiety disorder, unspecified; G89.29 Other chronic pain; D69.59 Other secondary thrombocytopenia; T45.1X5A Adverse effect of antineoplastic and immunosuppressive drugs, initial encounter; N83.209 Unspecified ovarian cyst, unspecified side

== ENCOUNTER 2017-03-10 12:07 | Inpatient (IN) | payer OTHER, MEDICAID ==
[~2017-03-10] VITALS: Ht 157.5 cm; Wt 52.4 kg
[~2017-03-10 12:07] MED LIST changes: +FLAGYL500 MG PO; +HYDROCODONE-APA1 TAB PO; +HYSINGLA ER30 MG PO; +NICODERM C1 PATCH .1 TRANSDERM
[2017-03-10] MEDS ORDERED: K-TAB10 MEQ PO (12:53)
[2017-03-10 14:08] LABS: BASOPHILS 0.6 % (0-2); EOSINOPHILS 0.7 % (0-7); HEMATOCRIT 42.7 % (36.0-48.0); HEMOGLOBIN 14.5 g/dL (12-16); IMMATURE GRANULOCYTES 0.2 % (0-5); LYMPHOCYTES 36.6 % (15-50); MCH 31.9 pg (26.0-34.0); MCV 93.8 fL (80.0-100.0); MEAN PLATELET VOLUME 9.9 fL (7.4-10.4); MONOCYTES 19.5 % (2-11); NEUTROPHILS 42.4 % (40-80); RBC 4.55 10x6/uL (4.00-5.40); RDW 14.2 % (11.5-14.5); WBC 5.4 10x3/uL (4.8-10.8)
[2017-03-10 14:12] LABS: PLATELET COUNT 210 10x3/uL (130-400)
[2017-03-10 14:43] LABS: ALBUMIN 2.5 g/dL (3.4-5.0); ALKALINE PHOSPHATASE 122 U/L (46-116); ALT (SGPT) 11 U/L (10-68); BILIRUBIN - TOTAL 0.65 mg/dL (0.2-1.3); CALC OSMOLALITY 260 mosm/kg (275-300); CALCIUM 7.9 mg/dL (8.5-10.1); CARBON DIOXIDE 26.5 mmol/L (21.0-32.0); CHLORIDE - SERUM 96 mmol/L (98-107); CREATININE - SERUM 0.4 mg/dL (0.6-1.3); GLUCOSE 75 mg/dL (74-106); POTASSIUM - SERUM 3.4 mmol/L (3.5-5.1); PROTEIN - SERUM 8.2 g/dL (6.4-8.2); SODIUM 133 mmol/L (136-145); UREA NITROGEN 1 mg/dL (7-18); eGFR NON AFRICAN AMERICAN > 90 mL/min (90-120)
[2017-03-10 16:13] VITALS: BP 111/63
[2017-03-10 16:54] VITALS: BP 111/63; BMI 22.3
--- NOTE | 2017-03-10 18:51 | NUR ---
PT SITTING UP IN BED COMPLAIN OF PAIN GIVEN NORCO EARLIER PER ORDER. PT STILL WITH PAIN GIVEN A WARM PACK FOR ABDOMEN. NO RESULTS OF DUCOLAX SUPPOSITORY WILL CONTINUE TO MONITOR.
[2017-03-10 19:00] VITALS: BP 110/71
--- NOTE | 2017-03-10 20:00 | NUR ---
PATIENT IS AWAKE, ALERT AND ORIENTED X'S 4. ABD IS DISTENDED AND FIRM. BOWEL SOUNDS ARE HYPOACTIVE PER AUSCULTATION. PATIENT DENIES PASSING ANY GAS. ENCOURAGED PATIENT TO AMBULATE IN THE STORY. SHE ASKED ABOUT THE IV POLE, EXPLAINED THAT SHE CAN UNPLUG IT AND ROLL IT WITH HER. SHE VERBALIZED UNDERSTANDING. DENIES NEEDS AT THIS TIME. BED IN LOWEST POSITION, CALL LIGHT IN REACH. PATIENT HAS A CUP OF ICE WATER, TOLD HER SAID TO ONLY SIP ON THE WATER TO KEEP HER MOUTH WET, AND TO DO SO SPARINGLY. PATIENT VERBALIZING UNDERSTANDING STATING "YEAH, THAT'S WHAT I AM DOING, JUST GETTING ENOUGH TO WET MY MOUTH."
[2017-03-11] VITALS (14 sets, daily range): BP systolic 85–123; BP diastolic 47–78; Ht 157.5 cm; Wt 52.4 kg
--- NOTE | 2017-03-11 03:40 | NUR ---
PATIENT IS AWAKE AND ALERT. SITTING UP IN BED WIPING HER FACE WITH A WET WASH CLOTH. SHE STATED HER PAIN IS FEELING BETTER, RATED A 5/10. PATIENT STATED HER MOUTH IS DRY. BROUGHT PATIENT A FRESH CUP OF ICE WATER TO SIP ON. PATIENT DENIES NEEDS AT THIS TIME.
[2017-03-11 05:37] LABS: BASOPHILS 0.6 % (0-2); EOSINOPHILS 1.3 % (0-7); HEMATOCRIT 39.7 % (36.0-48.0); HEMOGLOBIN 13.3 g/dL (12-16); IMMATURE GRANULOCYTES 0.2 % (0-5); LYMPHOCYTES 32.9 % (15-50); MCH 31.7 pg (26.0-34.0); MCHC 33.5 g/dL (31.0-37.0); MCV 94.5 fL (80.0-100.0); MEAN PLATELET VOLUME 9.2 fL (7.4-10.4); MONOCYTES 21.4 % (2-11); NEUTROPHILS 43.6 % (40-80); PLATELET COUNT 169 10x3/uL (130-400); RDW 14.2 % (11.5-14.5); WBC 5.3 10x3/uL (4.8-10.8)
[2017-03-11 06:13] LABS: ALBUMIN 2.3 g/dL (3.4-5.0); ALKALINE PHOSPHATASE 109 U/L (46-116); BILIRUBIN - TOTAL 0.66 mg/dL (0.2-1.3); CALCIUM 8.2 mg/dL (8.5-10.1); CARBON DIOXIDE 23.6 mmol/L (21.0-32.0); CHLORIDE - SERUM 97 mmol/L (98-107); CREATININE - SERUM 0.4 mg/dL (0.6-1.3); POTASSIUM - SERUM 3.6 mmol/L (3.5-5.1); PROTEIN - SERUM 7.3 g/dL (6.4-8.2); SODIUM 133 mmol/L (136-145); eGFR NON AFRICAN AMERICAN > 90 mL/min (90-120)
[2017-03-11 06:16] LABS: ALT (SGPT) 16 U/L (10-68); CALC OSMOLALITY 260 mosm/kg (275-300); UREA NITROGEN 5 mg/dL (7-18)
[2017-03-11 06:18] LABS: GLUCOSE 68 mg/dL (74-106)
--- NOTE | 2017-03-11 07:05 | NUR ---
SLEEPING AT THIS TIME WITH RESPIRATIONS EVEN AND NON LABORED. CALL LIGHT IN REACH, SRX2 WITH BED IN LOWEST POSITION AND WHEELS LOCKED. WILL CONTINUE WITH PLAN OF CARE.
--- NOTE | 2017-03-11 07:50 | NUR ---
PT ASSESSMENT COMPLETE AWAKE AND ALERT ORIENTED X 3 BSA X 4 QUADS ABDOMEN FIRM AND DISTENDED REPORTS 4 SMALL BOWEL MOVEMENTS THIS AM. ALL ADLS PER STAFF ASSIST. PT HAD PAIN MED PER REQUEST PER LEGAL PARAPROFESSIONAL NURSE AT 0700
--- NOTE | 2017-03-11 08:47 | NUR ---
Patient Name: VRIGIL KHAN Admission Status: Elective Accout number: [id number] Admission Date: 03-10-2017 : 1955 Admission Diagnosis: Attending: GIRISH Current LOS: 1 Anticipated DC Date: 03-14-2017 Planned Disposition: Home Primary Insurance: [employer] [facility] [place] Discharge Planning Comments: CM MET WITH PATIENT REGARDING D/C NEEDS AND PLANS. PATIENT LIVES WITH HER SPOUSE (COLLIN) AND SON (URBAN) AND ONE OF THEM WILL DRIVE HER HOME AT DISCHARGE. PATIENT STATED SHE HAS A RAMP TO ENTER HOME AND NO STAIRS INSIDE. PATIENT STATED SHE IS INDEPENDENT WITH HER CARE AND HAS A WALKER, WHEELCHAIR, BS COMMODE, SHOWER CHAIR, AND CANE AT HOME IF NEEDED. GILBERTO PCP IS DR. MCMAHON AND MONA IS [facility]. PATIENT REFUSED HOME HEALTH AND HAD NO OTHER NEEDS AT THIS TIME WHEN DISCHARGED. PCP DR. MCMAHON [facility]- [phone] HANNA (SPOUSE) [phone] URBAN (SON) [phone] Alumni Secretary: Kavitha Meredith Is the patient Alert and Oriented? Yes 0 * How many steps to enter\exit or inside your home? RAMP 0 * PCP DR. MCAMHON 0 * Pharmacy [facility] 0 * Preadmission Environment Home with Family 0 * ADLs Independent 0 * List name and contact numbers for known caregivers / representatives who currently or will assist patient after discharge: URBAN TINSLEY (SON) [phone] HANNA (SPOUSE) [phone] 0 * Community resources currently utilized None 0 * Additional services required to return to the preadmission environment? Yes 0 * Can the patient safely return to the preadmission environment? Yes 0 * Has this patient been hospitalized within the prior 30 days at any hospital? No 0 Grand Total: 0
[2017-03-11 11:22] LABS: INR 1.01 (0.85-1.17); PROTIME 13.2 SECONDS (11.6-15.0)
--- NOTE | 2017-03-11 13:15 | NUR ---
RECIEVED TO ROOM FROM IR S/P PARACENTESIS OF 4900 ML FLUID FROM RLQ WITH DREMABONDED PUNCTURE SITE. VITAL SIGNS 104/61 HR 80 WILL MONITOR
--- NOTE | 2017-03-11 13:55 | NUR ---
PT NOTED TO HAVE B/P 85/48 50 OF ALBUMIN GIVEN IV
--- NOTE | 2017-03-11 13:59 | NUR ---
B/P 95/45
--- NOTE | 2017-03-11 19:21 | NUR ---
PATIENT IS AWAKE, ALERT AND ORIENTED X'S 4. RESPIRATIONS ARE EVEN AND UNLABORED ON ROOM AIR. NO SIGNS OF DISTRESS NOTED.
[2017-03-12 00:55] VITALS: BP 109/60
--- NOTE | 2017-03-12 02:35 | NUR ---
PATIENT RATED HER PAIN A 7/10. BROUGHT PATIENT A FOLDED WARM GOWN FROM THE WARMER, PLACED IT DIRECTLY ON HER ABDOMEN AND PUT HER GOWN SHE WEARING OVER IT TO TRAP THE HEAT. PATIENT SMILED AND STATED "OH, THAT FEELS BETTER ALREADY. THANK YOU."
[2017-03-12 04:00] VITALS: BP 115/63
[2017-03-12 05:13] LABS: ALBUMIN 2.7 g/dL (3.4-5.0); ALKALINE PHOSPHATASE 90 U/L (46-116); ALT (SGPT) 13 U/L (10-68); CALCIUM 8.1 mg/dL (8.5-10.1); CHLORIDE - SERUM 95 mmol/L (98-107); CREATININE - SERUM 0.4 mg/dL (0.6-1.3); POTASSIUM - SERUM 3.3 mmol/L (3.5-5.1); PROTEIN - SERUM 6.7 g/dL (6.4-8.2); SODIUM 131 mmol/L (136-145); eGFR NON AFRICAN AMERICAN > 90 mL/min (90-120)
[2017-03-12 05:21] LABS: BASOPHILS 0.7 % (0-2); EOSINOPHILS 1.5 % (0-7); HEMATOCRIT 39.9 % (36.0-48.0); HEMOGLOBIN 13.5 g/dL (12-16); IMMATURE GRANULOCYTES 0.2 % (0-5); LYMPHOCYTES 32.5 % (15-50); MCH 31.5 pg (26.0-34.0); MCHC 33.8 g/dL (31.0-37.0); MEAN PLATELET VOLUME 9.6 fL (7.4-10.4); MONOCYTES 19.2 % (2-11); NEUTROPHILS 45.9 % (40-80); PLATELET COUNT 172 10x3/uL (130-400); RBC 4.29 10x6/uL (4.00-5.40); WBC 4.5 10x3/uL (4.8-10.8)
[2017-03-12 05:24] LABS: CALC OSMOLALITY 259 mosm/kg (275-300); GLUCOSE 112 mg/dL (74-106); UREA NITROGEN 2 mg/dL (7-18)
[2017-03-12 07:39] VITALS: BP 100/60
--- NOTE | 2017-03-12 07:45 | NUR ---
REPORT RECIEVED, CARE ASSUMED. IV INTACT, FLUIDS RUNNING ORDERED. NO COMLAINTS AT THIS TIME. BED LOW, CALL LIGHT WITHIN REACH.
--- NOTE | 2017-03-12 09:00 | NUR ---
PT IV FLUIDS D/C'D ORDERED PER DR. ROBERTS.
--- NOTE | 2017-03-12 11:01 | NUR ---
TELEMETRY D/C'D PER DR. CABRAL.
--- NOTE | 2017-03-12 11:58 | NUR ---
PT RESTING IN ROOM, FAMILY AT BEDSIDE. NO COMPLAINTS AT THIS TIME. CALL LIGHT WITHIN REACH.
--- NOTE | 2017-03-12 12:15 | NUR ---
JUAN MANUEL ESPINOZA D/C'D ORDERED BY KATELYN LOPEZ. PT COMPLAINS OF NO NAUSEA.
[2017-03-12 12:17] VITALS: BP 105/66
--- NOTE | 2017-03-12 15:30 | NUR ---
MYLANTA 10MG Q6H PRN HEARTBURN PER KATELYN HI APN ORDLORI.
[2017-03-12 15:35] VITALS: BP 100/63
--- NOTE | 2017-03-12 16:13 | NUR ---
PT STATES HEARTBURN IS RELIEVE. C/O PAIN 8/10 IN ABDOMEN, PRN NORCO GIVEN PRESCRIBED.
--- NOTE | 2017-03-12 18:14 | NUR ---
PT WATCHING TV, NO COMPLAINTS AT THIS TIME. "MY PAIN IS DOING OK RIGHT NOW." CALL LIGHT WITHIN REACH.
--- NOTE | 2017-03-12 18:33 | NUR ---
L CHEST PORT DRESSING CHANGED, STERILE TECHNIQUE USED. NO COMPLAINTS OR PROBLEMS AT THIS TIME. NO SKIN IRRITATION AT SITE. CALL LIGHT WITHIN REACH.
[2017-03-12 19:00] VITALS: BP 133/76
--- NOTE | 2017-03-12 19:00 | NUR ---
BEDSIDE REPORT RECEIVED AND CARE OF PT ASSUMED. PT LYING IN HIGH AGRAWAL'S POSITION WATCHING TV. LEFT PORT ACCESSED AND SALINE LOCKED. WILL MONITOR FOR NEEDS. CALL LIGHT WITHIN REACH.
--- NOTE | 2017-03-12 21:34 | NUR ---
HS MEDICATIONS GIVEN TO INCLUDE NORCO PER PRN ORDER, PER PT REQUEST. WILL CONTINUE TO MONITOR FOR NEEDS.
[2017-03-13] VITALS: BP 105/63
--- NOTE | 2017-03-13 00:30 | NUR ---
PT RESTING IN HIGH AGRAWAL'S POSITION WITH EYES CLOSED AND UNLABORED BREATHING. SIDE RAILS UP X2 FOR SAFETY.
[2017-03-13 04:00] VITALS: BP 118/63
[2017-03-13 04:43] LABS: BASOPHILS 0.2 % (0-2); EOSINOPHILS 1.1 % (0-7); HEMOGLOBIN 13.4 g/dL (12-16); IMMATURE GRANULOCYTES 0.2 % (0-5); LYMPHOCYTES 36.4 % (15-50); MCH 31.7 pg (26.0-34.0); MCHC 33.5 g/dL (31.0-37.0); MCV 94.6 fL (80.0-100.0); MEAN PLATELET VOLUME 9.7 fL (7.4-10.4); MONOCYTES 18.7 % (2-11); NEUTROPHILS 43.4 % (40-80); PLATELET COUNT 158 10x3/uL (130-400); RBC 4.23 10x6/uL (4.00-5.40); RDW 14.2 % (11.5-14.5); WBC 4.4 10x3/uL (4.8-10.8)
[2017-03-13 04:57] LABS: ALBUMIN 2.6 g/dL (3.4-5.0); ALKALINE PHOSPHATASE 106 U/L (46-116); ALT (SGPT) 15 U/L (10-68); BILIRUBIN - TOTAL 0.41 mg/dL (0.2-1.3); CALCIUM 8.3 mg/dL (8.5-10.1); CARBON DIOXIDE 30.9 mmol/L (21.0-32.0); CHLORIDE - SERUM 101 mmol/L (98-107); CREATININE - SERUM 0.5 mg/dL (0.6-1.3); GLUCOSE 112 mg/dL (74-106); SODIUM 135 mmol/L (136-145); eGFR NON AFRICAN AMERICAN > 90 mL/min (90-120)
[2017-03-13 04:58] LABS: APTT 32.7 SECONDS (22.8-39.4); INR 1.01 (0.85-1.17); PROTIME 13.2 SECONDS (11.6-15.0)
[2017-03-13 04:59] LABS: CALC OSMOLALITY 267 mosm/kg (275-300); POTASSIUM - SERUM 4.8 mmol/L (3.5-5.1); UREA NITROGEN 3 mg/dL (7-18)
--- NOTE | 2017-03-13 07:41 | NUR ---
REPORT RECEIVED. ASSUMED CARE OF PATIENT. WATCHING TV IN CHAIR, RESTING. NO COMPLAINTS AT THIS TIME. CALL LIGHT WITHIN REACH.
--- NOTE | 2017-03-13 07:43 | NUR ---
PT L PORT SALINE LOCK, NO IRRITATION NOTED. DRSG DRY AND INTACT.
[2017-03-13 08:35] VITALS: BP 125/75
--- NOTE | 2017-03-13 09:21 | NUR ---
SPOKE WITH DR. ROBERTS, PT BLANCHE TO D/C HOME WITH HOME MEDICATIONS.
--- NOTE | 2017-03-13 10:29 | NUR ---
CM REASSESSMENT NOTE: PATIENT IS DISCHARGING HOME TODAY AND SPOUSE IS DRIVING HER. PATIENT REFUSED HOME HEALTH AND HAD NO OTHER NEEDS FOR DISCHARGE.
--- NOTE | 2017-03-13 11:16 | NUR ---
DISCHARGE INSTRUCTIONS GIVEN. PT VERBALIZED UNDERSTANDING. NO QUESTIONS AT THIS TIME. PORT ACCESS REMOVED, DRSG APPLIED. TOLERATED WITH NO PAIN. FAMILY AT BEDSIDE. AWAITING WHEELCHAIR FOR DISCHARGE.
== END 2017-03-13 11:26 | disposition home or self-care (01) | DRG 389 ==
LOC: D.MS 12:07
PROVIDERS: General Practice; ADMIT Internal Medicine Hematology & Oncology
PROC: 0W9G3ZZ Drainage of Peritoneal Cavity, Percutaneous Approach (ICD-10-PCS; principal; 2017-03-11 12:05)
DX: K56.7 Ileus, unspecified (principal); C18.9 Malignant neoplasm of colon, unspecified; C78.6 Secondary malignant neoplasm of retroperitoneum and peritoneum; R18.8 Other ascites; F17.203 Nicotine dependence unspecified, with withdrawal; K59.00 Constipation, unspecified

== ENCOUNTER → 2017-05-02 11:40 | Outpatient (CLI) | payer OTHER, MEDICAID ==
[2017-03-11 11:03] VITALS: BMI 22.3
[~2017-05-02 11:40] MED LIST changes: +K-TAB10 MEQ PO
== END | disposition home or self-care (01) ==
LOC: D.CT 11:40
DX: R10.11 Right upper quadrant pain (principal)

== ENCOUNTER → 2017-10-10 12:26 | Outpatient (CLI) | payer OTHER ==
[2017-03-11 11:03] VITALS: BMI 22.3
== END | disposition home or self-care (01) ==
LOC: D.CT 12:26
DX: C18.1 Malignant neoplasm of appendix (principal)

== ENCOUNTER → 2018-01-26 11:00 | Outpatient (CLI) | payer OTHER ==
[2017-03-11 11:03] VITALS: BMI 22.3
[~2018-01-26 11:00] MED LIST changes: +GABAPENTIN100 MG PO
== END | disposition home or self-care (01) ==
LOC: D.CT 11:00
DX: C18.1 Malignant neoplasm of appendix (principal)

== ENCOUNTER 2018-02-02 22:46 | Inpatient (IN) | payer OTHER ==
[~2018-02-02] VITALS: Ht 157.5 cm; Wt 55.6 kg
--- NOTE | ~2018-02-02 | OP ---
PATIENT NAME: VIRGIL KHAN MEDICAL RECORD: [id number] :[birth year] LOCATION:D.M2 D.2112 ADMISSION DATE:02/03/18 SURGEON: MARY CABRAL MD DATE OF OPERATION: 02/16/2018 SURGEON: Mary Cabral MD PREOPERATIVE DIAGNOSIS: Metastatic peritoneal tumor. POSTOPERATIVE DIAGNOSIS: Severe peritoneal carcinomatosis. PROCEDURE PERFORMED: 1. Jenifer gastrostomy. 2. Excision of omental tumor. 3. Diagnostic laparoscopy. 4. Laparoscopic lysis of adhesions. ANESTHESIA: General. COMPLICATIONS: None. SPECIMENS: Omental mass 6 x 4 x 4. Case was clean contaminated. OPERATIVE COURSE: After consent was obtained, the patient was taken to the operating room and placed in the supine position on the operating table. Next, general anesthesia was given via endotracheal intubation after a timeout was performed to confirm the correct patient and procedure. The abdomen was then prepped and draped in typical sterile fashion. Local anesthetic was injected in the left upper quadrant at Hu's point. A stab incision was made with an 11-blade scalpel. Using a 5-mm bladeless optical trocar, the abdomen was entered under direct laparoscopic vision. Adequate pneumoperitoneum was achieved. The abdominal cavity was inspected. No evidence of bowel injury, no evidence of bleeding. A second trocar was placed in the left lateral quadrant under direct laparoscopic vision. Extensive lysis of adhesions was performed. The omental mass was severely adherent to the anterior abdominal wall, which was dissected off using sharp scissor Metzenbaum dissection. The abdominal cavity was surveyed. There was tumor too numerous to count. Pictures were taken of tumor located throughout all 4 quadrants. There was tumor seated within the abdominal wall. There was tumor seated within the serosa of the small and large bowel, as well as the liver. At this time, a small upper midline incision was made with a 15 blade scalpel. Dissection continued to the level of the fascia using electrocautery. The fascia was incised using electrocautery. The peritoneum was incised using electrocautery. A small Luis retractor was placed. The omentum was extracorporealized. The tumor was dissected off the transverse mesocolon using Metzenbaum scissor dissection. Half the specimen was sent for permanent pathology. Other half was sent for frozen section, which came back as metastatic adenocarcinoma. Careful attention was paid to hemostasis, which was obtained with electrocautery and silk ties. Next, the greater curvature of stomach was grabbed with a Charles. It was extracorporealized. Two pursestring sutures were placed. A small gastrotomy was made. The gastrostomy tube was passed to the left upper quadrant under direct vision. The gastrostomy tube was placed in the gastrotomy. The balloon was inflated. The pursestring sutures were tied. The anterior stomach was then OPERATIVE REPORT [id number] VIRGIL KHAN secured to the anterior abdominal wall. The Luis retractor was removed. The incision was closed using #1 looped PDS. Skin was closed with darío. The abdomen was reinsufflated. Again, the abdominal cavity was inspected. There was no evidence of bowel injury. No evidence of bleeding. At this time, all remaining instruments were removed. The abdomen was desufflated. Trocars removed. Skin incisions were closed with darío. At the end of the case, all needle and instrument counts were correct. No complications occurred. The patient was extubated and transferred to the PACU in stable condition. TRANSINT:[id number] Voice Confirmation ID: [id number] DOCUMENT ID: [id number] MARY CABRAL MD at 2018 CC: [id number] DICTATION DATE: 02/16/18 1544 GRAINER MACHINE: 02/16/18 1602 ADM IN [facility] [address] [place] [address]
[~2018-02-02 22:46] MED LIST changes: -GABAPENTIN100 MG PO
[2018-02-02] MEDS ORDERED: GABAPENTIN100 MG PO (22:54)
[2018-02-02 23:59] LABS: HEMATOCRIT 49.9 % (36.0-48.0); HEMOGLOBIN 17.2 g/dL (12-16); LYMPHOCYTES 11.2 % (15-50); MCH 31.2 pg (26.0-34.0); MCHC 34.5 g/dL (31.0-37.0); MCV 90.6 fL (80.0-100.0); MEAN PLATELET VOLUME 9.3 fL (7.4-10.4); RBC 5.51 10x6/uL (4.00-5.40)
[2018-02-03] VITALS (9 sets, daily range): BP systolic 105–128; BP diastolic 59–78; Ht 157.5 cm; Wt 55.6 kg
[2018-02-03 00:01] LABS: PLATELET COUNT 222 10x3/uL (130-400)
[2018-02-03 00:20] LABS: ALBUMIN 4.1 g/dL (3.4-5.0); ANION GAP 14.4 mmol/L (8-16); BILIRUBIN - TOTAL 0.96 mg/dL (0.2-1.3); CALCIUM 9.8 mg/dL (8.5-10.1); CARBON DIOXIDE 29.1 mmol/L (21.0-32.0); CREATININE - SERUM 1.1 mg/dL (0.6-1.3); POTASSIUM - SERUM 3.5 mmol/L (3.5-5.1); PROTEIN - SERUM 8.7 g/dL (6.4-8.2)
[2018-02-03 02:45] LABS: APPEARANCE CLOUDY (CLEAR); BILIRUBIN NEGATIVE (NEGATIVE); COLOR DK YELLOW (YELLOW); GLUCOSE NEGATIVE (NEGATIVE); KETONE NEGATIVE (NEGATIVE); NITRITE NEGATIVE (NEGATIVE); PROTEIN 2+ mg/dL (NEGATIVE); SPECIFIC GRAVITY 1.025 (1.005-1.020); UROBILINOGEN NORMAL (NORMAL)
[2018-02-03 02:47] LABS: BACTERIA MANY /hpf (NONE SEEN); EPITHELIAL CELLS 0-5 /hpf (0-5); MUCUS <1+ /lpf (NONE SEEN); RED CELLS - URINE 0-5 /hpf (0-5); WHITE CELLS - URINE 0-5 /hpf (0-5)
[2018-02-03] MEDS ORDERED: HYDROCODONE-APA1 TAB PO (07:19)
[2018-02-03] MEDS ORDERED: NICODERM C1 PATCH .1 TRANSDERM (07:20)
[2018-02-03 11:26] LABS: BASOPHILS 0.2 % (0-2); EOSINOPHILS 0.6 % (0-7); HEMATOCRIT 42.8 % (36.0-48.0); HEMOGLOBIN 14.6 g/dL (12-16); IMMATURE GRANULOCYTES 0.1 % (0-5); LYMPHOCYTES 24.9 % (15-50); MCH 31.9 pg (26.0-34.0); MCHC 34.1 g/dL (31.0-37.0); MEAN PLATELET VOLUME 9.9 fL (7.4-10.4); MONOCYTES 8.4 % (2-11); NEUTROPHILS 65.8 % (40-80); PLATELET COUNT 194 10x3/uL (130-400); RBC 4.57 10x6/uL (4.00-5.40)
[2018-02-03 11:30] LABS: MCV 93.7 fL (80.0-100.0); WBC 11.4 10x3/uL (4.8-10.8)
[2018-02-04 00:32] VITALS: BP 135/78
[2018-02-04 04:00] VITALS: BP 105/70
[2018-02-04 05:41] LABS: BASOPHILS 0.3 % (0-2); EOSINOPHILS 1.4 % (0-7); HEMATOCRIT 39.9 % (36.0-48.0); IMMATURE GRANULOCYTES 0.2 % (0-5); LYMPHOCYTES 35.2 % (15-50); MCH 31.2 pg (26.0-34.0); MCHC 32.6 g/dL (31.0-37.0); MEAN PLATELET VOLUME 9.6 fL (7.4-10.4); MONOCYTES 10.6 % (2-11); NEUTROPHILS 52.3 % (40-80); PLATELET COUNT 166 10x3/uL (130-400); RBC 4.17 10x6/uL (4.00-5.40); WBC 9.5 10x3/uL (4.8-10.8)
[2018-02-04 05:58] LABS: MCV 95.7 fL (80.0-100.0)
[2018-02-04 06:11] LABS: ALKALINE PHOSPHATASE 55 U/L (46-116); BILIRUBIN - TOTAL 0.75 mg/dL (0.2-1.3); CALCIUM 8.4 mg/dL (8.5-10.1); CARBON DIOXIDE 33.1 mmol/L (21.0-32.0); CHLORIDE - SERUM 102 mmol/L (98-107); GLUCOSE 101 mg/dL (74-106); POTASSIUM - SERUM 3.4 mmol/L (3.5-5.1); SODIUM 139 mmol/L (136-145)
[2018-02-04 06:16] LABS: ALBUMIN 2.9 g/dL (3.4-5.0); ALT (SGPT) 8 U/L (10-68); CALC OSMOLALITY 277 mosm/kg (275-300); CREATININE - SERUM 0.7 mg/dL (0.6-1.3); PROTEIN - SERUM 6.2 g/dL (6.4-8.2); UREA NITROGEN 12 mg/dL (7-18); eGFR NON AFRICAN AMERICAN 89 mL/min (90-120)
[2018-02-04 08:03] VITALS: BP 117/71
[2018-02-04 12:06] VITALS: BP 102/60
[2018-02-04 14:48] VITALS: BP 106/57
[2018-02-04 20:18] VITALS: BP 112/66
[2018-02-05 00:49] VITALS: BP 119/59
[2018-02-05 03:34] LABS: BASOPHILS 0.3 % (0-2); EOSINOPHILS 3.1 % (0-7); HEMATOCRIT 37.2 % (36.0-48.0); HEMOGLOBIN 12.2 g/dL (12-16); IMMATURE GRANULOCYTES 0.1 % (0-5); MCH 31.8 pg (26.0-34.0); MCHC 32.8 g/dL (31.0-37.0); MCV 96.9 fL (80.0-100.0); MEAN PLATELET VOLUME 9.7 fL (7.4-10.4); NEUTROPHILS 56.5 % (40-80); PLATELET COUNT 160 10x3/uL (130-400); RBC 3.84 10x6/uL (4.00-5.40); WBC 8.8 10x3/uL (4.8-10.8)
[2018-02-05 03:51] LABS: ALBUMIN 2.8 g/dL (3.4-5.0); ALKALINE PHOSPHATASE 56 U/L (46-116); ALT (SGPT) 9 U/L (10-68); BILIRUBIN - TOTAL 0.78 mg/dL (0.2-1.3); CALCIUM 8.2 mg/dL (8.5-10.1); CARBON DIOXIDE 35.5 mmol/L (21.0-32.0); CHLORIDE - SERUM 104 mmol/L (98-107); GLUCOSE 113 mg/dL (74-106); POTASSIUM - SERUM 3.4 mmol/L (3.5-5.1); PROTEIN - SERUM 5.9 g/dL (6.4-8.2); SODIUM 141 mmol/L (136-145)
[2018-02-05 03:54] LABS: CALC OSMOLALITY 278 mosm/kg (275-300); CREATININE - SERUM 0.4 mg/dL (0.6-1.3); UREA NITROGEN 5 mg/dL (7-18); eGFR NON AFRICAN AMERICAN > 90 mL/min (90-120)
[2018-02-05 04:50] VITALS: BP 108/60
[2018-02-05 07:42] LABS: MAGNESIUM - SERUM 1.8 mg/dL (1.8-2.4); PHOSPHOROUS 3.1 mg/dL (2.5-4.9)
[2018-02-05 08:19] VITALS: BP 115/66
[2018-02-05 15:25] VITALS: BP 146/77
[2018-02-05 20:07] VITALS: BP 108/57
[2018-02-06 00:11] VITALS: BP 103/59
[2018-02-06 04:36] VITALS: BP 104/64
[2018-02-06 08:27] VITALS: BP 114/67
[2018-02-06 11:17] LABS: BASOPHILS 0.5 % (0-2); EOSINOPHILS 6.5 % (0-7); HEMATOCRIT 38.9 % (36.0-48.0); HEMOGLOBIN 12.6 g/dL (12-16); IMMATURE GRANULOCYTES 0.1 % (0-5); LYMPHOCYTES 32.3 % (15-50); MCH 31.7 pg (26.0-34.0); MCHC 32.4 g/dL (31.0-37.0); MEAN PLATELET VOLUME 10.3 fL (7.4-10.4); MONOCYTES 11.1 % (2-11); NEUTROPHILS 49.5 % (40-80); PLATELET COUNT 168 10x3/uL (130-400); RBC 3.97 10x6/uL (4.00-5.40)
[2018-02-06 11:29] LABS: ALBUMIN 2.9 g/dL (3.4-5.0); ALKALINE PHOSPHATASE 56 U/L (46-116); BILIRUBIN - TOTAL 0.98 mg/dL (0.2-1.3); CALC OSMOLALITY 277 mosm/kg (275-300); CALCIUM 8.8 mg/dL (8.5-10.1); CARBON DIOXIDE 35.1 mmol/L (21.0-32.0); CHLORIDE - SERUM 102 mmol/L (98-107); CREATININE - SERUM 0.5 mg/dL (0.6-1.3); GLUCOSE 96 mg/dL (74-106); POTASSIUM - SERUM 3.5 mmol/L (3.5-5.1); PROTEIN - SERUM 6.3 g/dL (6.4-8.2); SODIUM 141 mmol/L (136-145); UREA NITROGEN 4 mg/dL (7-18); eGFR NON AFRICAN AMERICAN > 90 mL/min (90-120)
[2018-02-06 11:31] LABS: ALT (SGPT) 14 U/L (10-68)
[2018-02-06 12:00] VITALS: BP 116/64
[2018-02-06 16:28] VITALS: BP 130/73
[2018-02-06 20:41] VITALS: BP 165/78
[2018-02-07 00:53] VITALS: BP 116/68
[2018-02-07 04:00] VITALS: BP 103/62
[2018-02-07 06:06] LABS: BASOPHILS 0.5 % (0-2); EOSINOPHILS 6.6 % (0-7); HEMATOCRIT 37.6 % (36.0-48.0); HEMOGLOBIN 12.1 g/dL (12-16); IMMATURE GRANULOCYTES 0.3 % (0-5); LYMPHOCYTES 34.5 % (15-50); MCH 30.9 pg (26.0-34.0); MCHC 32.2 g/dL (31.0-37.0); MCV 96.2 fL (80.0-100.0); MONOCYTES 10.6 % (2-11); NEUTROPHILS 47.5 % (40-80); PLATELET COUNT 160 10x3/uL (130-400); RBC 3.91 10x6/uL (4.00-5.40); RDW 12.8 % (11.5-14.5); WBC 7.7 10x3/uL (4.8-10.8)
[2018-02-07 06:24] LABS: ALBUMIN 2.6 g/dL (3.4-5.0); ALKALINE PHOSPHATASE 59 U/L (46-116); ALT (SGPT) 11 U/L (10-68); BILIRUBIN - TOTAL 0.62 mg/dL (0.2-1.3); CALC OSMOLALITY 277 mosm/kg (275-300); CALCIUM 8.3 mg/dL (8.5-10.1); CARBON DIOXIDE 33.4 mmol/L (21.0-32.0); CHLORIDE - SERUM 103 mmol/L (98-107); CREATININE - SERUM 0.5 mg/dL (0.6-1.3); GLUCOSE 104 mg/dL (74-106); POTASSIUM - SERUM 3.5 mmol/L (3.5-5.1); PROTEIN - SERUM 5.8 g/dL (6.4-8.2); SODIUM 141 mmol/L (136-145); UREA NITROGEN 4 mg/dL (7-18); eGFR NON AFRICAN AMERICAN > 90 mL/min (90-120)
[2018-02-07 08:49] VITALS: BP 117/71
[2018-02-07 11:30] VITALS: BP 112/101
[2018-02-07 20:36] VITALS: BP 113/66
[2018-02-08 00:16] VITALS: BP 98/58
[2018-02-08 05:47] VITALS: BP 108/56
[2018-02-08 06:38] LABS: BASOPHILS 0.4 % (0-2); HEMOGLOBIN 11.9 g/dL (12-16); IMMATURE GRANULOCYTES 0.3 % (0-5); LYMPHOCYTES 32.8 % (15-50); MCH 31.2 pg (26.0-34.0); MCHC 32.2 g/dL (31.0-37.0); MCV 96.9 fL (80.0-100.0); MEAN PLATELET VOLUME 10.6 fL (7.4-10.4); NEUTROPHILS 50.5 % (40-80); PLATELET COUNT 187 10x3/uL (130-400); RBC 3.82 10x6/uL (4.00-5.40); RDW 12.9 % (11.5-14.5)
[2018-02-08 07:03] LABS: ALBUMIN 2.8 g/dL (3.4-5.0); ALKALINE PHOSPHATASE 65 U/L (46-116); ALT (SGPT) 11 U/L (10-68); BILIRUBIN - TOTAL 0.73 mg/dL (0.2-1.3); CALC OSMOLALITY 276 mosm/kg (275-300); CALCIUM 8.3 mg/dL (8.5-10.1); CARBON DIOXIDE 33.7 mmol/L (21.0-32.0); CHLORIDE - SERUM 103 mmol/L (98-107); CREATININE - SERUM 0.4 mg/dL (0.6-1.3); GLUCOSE 85 mg/dL (74-106); POTASSIUM - SERUM 3.6 mmol/L (3.5-5.1); PROTEIN - SERUM 5.9 g/dL (6.4-8.2); SODIUM 141 mmol/L (136-145); UREA NITROGEN 4 mg/dL (7-18); eGFR NON AFRICAN AMERICAN > 90 mL/min (90-120)
[2018-02-08 08:41] VITALS: BP 135/72
[2018-02-08 11:48] VITALS: BP 113/87
[2018-02-08 16:20] VITALS: BP 118/60
[2018-02-08 20:00] VITALS: BP 121/69
[2018-02-09 04:00] VITALS: BP 102/54
[2018-02-09 06:24] LABS: BASOPHILS 0.3 % (0-2); HEMATOCRIT 36.6 % (36.0-48.0); IMMATURE GRANULOCYTES 0.1 % (0-5); LYMPHOCYTES 28.6 % (15-50); MCH 31.6 pg (26.0-34.0); MCHC 32.8 g/dL (31.0-37.0); MCV 96.3 fL (80.0-100.0); MEAN PLATELET VOLUME 9.8 fL (7.4-10.4); MONOCYTES 11.6 % (2-11); NEUTROPHILS 54.4 % (40-80); PLATELET COUNT 183 10x3/uL (130-400); RDW 12.7 % (11.5-14.5); WBC 7.2 10x3/uL (4.8-10.8)
[2018-02-09 06:56] LABS: ALBUMIN 2.8 g/dL (3.4-5.0); ALKALINE PHOSPHATASE 66 U/L (46-116); ALT (SGPT) 10 U/L (10-68); BILIRUBIN - TOTAL 0.87 mg/dL (0.2-1.3); CALC OSMOLALITY 274 mosm/kg (275-300); CALCIUM 8.6 mg/dL (8.5-10.1); CARBON DIOXIDE 34.7 mmol/L (21.0-32.0); CHLORIDE - SERUM 101 mmol/L (98-107); CREATININE - SERUM 0.5 mg/dL (0.6-1.3); GLUCOSE 87 mg/dL (74-106); POTASSIUM - SERUM 3.9 mmol/L (3.5-5.1); PROTEIN - SERUM 6.1 g/dL (6.4-8.2); SODIUM 139 mmol/L (136-145); eGFR NON AFRICAN AMERICAN > 90 mL/min (90-120)
[2018-02-09 06:59] LABS: UREA NITROGEN 6 mg/dL (7-18)
[2018-02-09 08:44] VITALS: BP 117/69
[2018-02-09 11:44] VITALS: BP 116/68
[2018-02-09 15:32] VITALS: BP 126/68
[2018-02-09 21:28] VITALS: BP 129/94
[2018-02-10 00:18] VITALS: BP 112/57
[2018-02-10 04:55] LABS: BASOPHILS 0.4 % (0-2); EOSINOPHILS 4.2 % (0-7); HEMATOCRIT 38.3 % (36.0-48.0); HEMOGLOBIN 12.6 g/dL (12-16); IMMATURE GRANULOCYTES 0.2 % (0-5); LYMPHOCYTES 27.3 % (15-50); MCH 31.4 pg (26.0-34.0); MCHC 32.9 g/dL (31.0-37.0); MCV 95.5 fL (80.0-100.0); MEAN PLATELET VOLUME 9.9 fL (7.4-10.4); MONOCYTES 13.6 % (2-11); NEUTROPHILS 54.3 % (40-80); PLATELET COUNT 177 10x3/uL (130-400); RBC 4.01 10x6/uL (4.00-5.40); RDW 12.5 % (11.5-14.5); WBC 8.1 10x3/uL (4.8-10.8)
[2018-02-10 05:34] LABS: ALKALINE PHOSPHATASE 75 U/L (46-116); ALT (SGPT) 10 U/L (10-68); CALC OSMOLALITY 269 mosm/kg (275-300); CALCIUM 8.8 mg/dL (8.5-10.1); CARBON DIOXIDE 32.4 mmol/L (21.0-32.0); CHLORIDE - SERUM 99 mmol/L (98-107); CREATININE - SERUM 0.5 mg/dL (0.6-1.3); GLUCOSE 90 mg/dL (74-106); POTASSIUM - SERUM 3.7 mmol/L (3.5-5.1); PROTEIN - SERUM 6.5 g/dL (6.4-8.2); SODIUM 136 mmol/L (136-145); UREA NITROGEN 7 mg/dL (7-18); eGFR NON AFRICAN AMERICAN > 90 mL/min (90-120)
[2018-02-10 06:07] VITALS: BP 128/65
[2018-02-10 08:23] VITALS: BP 122/67
[2018-02-10 12:08] VITALS: BP 103/60
[2018-02-10 15:57] VITALS: BP 102/56
[2018-02-10 21:08] VITALS: BP 112/60
[2018-02-11 01:35] VITALS: BP 100/55
[2018-02-11 03:21] LABS: BASOPHILS 0.3 % (0-2); HEMATOCRIT 35.5 % (36.0-48.0); HEMOGLOBIN 11.7 g/dL (12-16); IMMATURE GRANULOCYTES 0.2 % (0-5); LYMPHOCYTES 31.6 % (15-50); MCH 31.3 pg (26.0-34.0); MCV 94.9 fL (80.0-100.0); MEAN PLATELET VOLUME 9.7 fL (7.4-10.4); MONOCYTES 13.5 % (2-11); NEUTROPHILS 51.4 % (40-80); PLATELET COUNT 172 10x3/uL (130-400); RBC 3.74 10x6/uL (4.00-5.40); RDW 12.3 % (11.5-14.5); WBC 6.7 10x3/uL (4.8-10.8)
[2018-02-11 04:08] LABS: ALBUMIN 2.5 g/dL (3.4-5.0); ALKALINE PHOSPHATASE 65 U/L (46-116); ALT (SGPT) 10 U/L (10-68); BILIRUBIN - TOTAL 0.91 mg/dL (0.2-1.3); CALC OSMOLALITY 273 mosm/kg (275-300); CALCIUM 8.3 mg/dL (8.5-10.1); CARBON DIOXIDE 34.1 mmol/L (21.0-32.0); CHLORIDE - SERUM 101 mmol/L (98-107); CREATININE - SERUM 0.5 mg/dL (0.6-1.3); GLUCOSE 93 mg/dL (74-106); POTASSIUM - SERUM 3.9 mmol/L (3.5-5.1); PROTEIN - SERUM 5.9 g/dL (6.4-8.2); SODIUM 138 mmol/L (136-145); UREA NITROGEN 7 mg/dL (7-18); eGFR NON AFRICAN AMERICAN > 90 mL/min (90-120)
[2018-02-11 05:29] VITALS: BP 127/71
[2018-02-11 08:46] VITALS: BP 118/73
[2018-02-11 12:17] VITALS: BP 111/71
[2018-02-11 16:25] VITALS: BP 120/68
[2018-02-11 21:01] VITALS: BP 124/75
[2018-02-12] VITALS (7 sets, daily range): BP systolic 103–162; BP diastolic 60–80
[2018-02-12 03:48] LABS: BASOPHILS 0.3 % (0-2); EOSINOPHILS 1.9 % (0-7); HEMATOCRIT 36.4 % (36.0-48.0); IMMATURE GRANULOCYTES 0.1 % (0-5); LYMPHOCYTES 23.6 % (15-50); MCH 31.1 pg (26.0-34.0); MCV 94.3 fL (80.0-100.0); MONOCYTES 12.1 % (2-11); RBC 3.86 10x6/uL (4.00-5.40); RDW 12.3 % (11.5-14.5); WBC 7.7 10x3/uL (4.8-10.8)
[2018-02-12 03:50] LABS: PLATELET COUNT 216 10x3/uL (130-400)
[2018-02-12 04:03] LABS: ALBUMIN 2.7 g/dL (3.4-5.0); ALKALINE PHOSPHATASE 64 U/L (46-116); ALT (SGPT) 12 U/L (10-68); CALC OSMOLALITY 268 mosm/kg (275-300); CALCIUM 8.8 mg/dL (8.5-10.1); CARBON DIOXIDE 32.1 mmol/L (21.0-32.0); CHLORIDE - SERUM 98 mmol/L (98-107); CREATININE - SERUM 0.5 mg/dL (0.6-1.3); GLUCOSE 95 mg/dL (74-106); PROTEIN - SERUM 6.2 g/dL (6.4-8.2); SODIUM 135 mmol/L (136-145); eGFR NON AFRICAN AMERICAN > 90 mL/min (90-120)
[2018-02-12 04:22] LABS: UREA NITROGEN 11 mg/dL (7-18)
[2018-02-13 01:00] VITALS: BP 104/57
[2018-02-13 04:14] LABS: BASOPHILS 0.3 % (0-2); EOSINOPHILS 2.1 % (0-7); HEMATOCRIT 34.1 % (36.0-48.0); HEMOGLOBIN 11.3 g/dL (12-16); IMMATURE GRANULOCYTES 0.2 % (0-5); LYMPHOCYTES 32.5 % (15-50); MCHC 33.1 g/dL (31.0-37.0); MCV 93.7 fL (80.0-100.0); MEAN PLATELET VOLUME 9.6 fL (7.4-10.4); MONOCYTES 10.8 % (2-11); NEUTROPHILS 54.1 % (40-80); PLATELET COUNT 190 10x3/uL (130-400); RBC 3.64 10x6/uL (4.00-5.40); RDW 12.2 % (11.5-14.5); WBC 6.3 10x3/uL (4.8-10.8)
[2018-02-13 04:31] LABS: ALBUMIN 2.5 g/dL (3.4-5.0); ALKALINE PHOSPHATASE 60 U/L (46-116); ALT (SGPT) 8 U/L (10-68); CALC OSMOLALITY 266 mosm/kg (275-300); CALCIUM 8.2 mg/dL (8.5-10.1); CARBON DIOXIDE 35.4 mmol/L (21.0-32.0); CHLORIDE - SERUM 99 mmol/L (98-107); CREATININE - SERUM 0.5 mg/dL (0.6-1.3); GLUCOSE 92 mg/dL (74-106); POTASSIUM - SERUM 3.9 mmol/L (3.5-5.1); SODIUM 134 mmol/L (136-145); UREA NITROGEN 9 mg/dL (7-18); eGFR NON AFRICAN AMERICAN > 90 mL/min (90-120)
[2018-02-13 05:59] VITALS: BP 96/52
[2018-02-13 07:43] LABS: MAGNESIUM - SERUM 2.2 mg/dL (1.8-2.4); PHOSPHOROUS 3.6 mg/dL (2.5-4.9)
[2018-02-13 07:53] VITALS: BP 110/56
[2018-02-13 12:02] VITALS: BP 135/78
[2018-02-13 16:27] VITALS: BP 119/71
[2018-02-13 20:00] VITALS: BP 124/65
[2018-02-14] VITALS: BP 114/66
[2018-02-14 04:00] VITALS: BP 88/52
[2018-02-14 08:52] VITALS: BP 100/61
[2018-02-14 10:09] LABS: MAGNESIUM - SERUM 2.4 mg/dL (1.8-2.4)
[2018-02-14 10:12] LABS: PHOSPHOROUS 4.6 mg/dL (2.5-4.9)
[2018-02-14 16:43] VITALS: BP 90/55
[2018-02-14 21:40] VITALS: BP 109/61
[2018-02-15 06:14] VITALS: BP 94/55
[2018-02-15 06:33] VITALS: BP 94/51
[2018-02-15 08:21] VITALS: BP 91/51
[2018-02-15 11:36] VITALS: BP 98/67
[2018-02-15 16:14] VITALS: BP 91/59
[2018-02-15 20:00] VITALS: BP 119/68
[2018-02-16] VITALS: BP 128/70
[2018-02-16 04:00] VITALS: BP 124/68
[2018-02-16 06:33] LABS: BASOPHILS 0.2 % (0-2); EOSINOPHILS 6.7 % (0-7); HEMATOCRIT 41.8 % (36.0-48.0); HEMOGLOBIN 13.6 g/dL (12-16); IMMATURE GRANULOCYTES 0.1 % (0-5); LYMPHOCYTES 28.2 % (15-50); MCH 31.3 pg (26.0-34.0); MCHC 32.5 g/dL (31.0-37.0); MCV 96.3 fL (80.0-100.0); MONOCYTES 9.6 % (2-11); NEUTROPHILS 55.2 % (40-80); RBC 4.34 10x6/uL (4.00-5.40); RDW 12.7 % (11.5-14.5); WBC 8.1 10x3/uL (4.8-10.8)
[2018-02-16 06:35] LABS: PLATELET COUNT 274 10x3/uL (130-400)
[2018-02-16 07:14] LABS: CALC OSMOLALITY 277 mosm/kg (275-300); CALCIUM 9.4 mg/dL (8.5-10.1); CARBON DIOXIDE 30.9 mmol/L (21.0-32.0); CHLORIDE - SERUM 100 mmol/L (98-107); CREATININE - SERUM 0.8 mg/dL (0.6-1.3); GLUCOSE 101 mg/dL (74-106); MAGNESIUM - SERUM 2.4 mg/dL (1.8-2.4); POTASSIUM - SERUM 4.9 mmol/L (3.5-5.1); SODIUM 139 mmol/L (136-145); UREA NITROGEN 12 mg/dL (7-18); eGFR NON AFRICAN AMERICAN 76 mL/min (90-120)
[2018-02-16 08:00] VITALS: BP 108/68
[2018-02-16 08:44] VITALS: BP 131/65
[2018-02-16 12:36] VITALS: BP 117/66
[2018-02-16 17:29] VITALS: BP 122/84
[2018-02-17] VITALS: BP 112/72
[2018-02-17 07:00] VITALS: BP 138/84
[2018-02-17 07:10] LABS: BASOPHILS 0.1 % (0-2); EOSINOPHILS 5.2 % (0-7); HEMATOCRIT 37.3 % (36.0-48.0); HEMOGLOBIN 12.1 g/dL (12-16); IMMATURE GRANULOCYTES 0.3 % (0-5); LYMPHOCYTES 17.8 % (15-50); MCH 30.9 pg (26.0-34.0); MCHC 32.4 g/dL (31.0-37.0); MCV 95.4 fL (80.0-100.0); MEAN PLATELET VOLUME 10.3 fL (7.4-10.4); MONOCYTES 9.9 % (2-11); NEUTROPHILS 66.7 % (40-80); PLATELET COUNT 233 10x3/uL (130-400); RBC 3.91 10x6/uL (4.00-5.40); RDW 12.8 % (11.5-14.5); WBC 7.9 10x3/uL (4.8-10.8)
[2018-02-17 07:45] LABS: CALC OSMOLALITY 274 mosm/kg (275-300); CALCIUM 8.2 mg/dL (8.5-10.1); CARBON DIOXIDE 31.3 mmol/L (21.0-32.0); CHLORIDE - SERUM 102 mmol/L (98-107); CREATININE - SERUM 0.6 mg/dL (0.6-1.3); GLUCOSE 83 mg/dL (74-106); PHOSPHOROUS 4.5 mg/dL (2.5-4.9); POTASSIUM - SERUM 4.8 mmol/L (3.5-5.1); SODIUM 138 mmol/L (136-145); UREA NITROGEN 12 mg/dL (7-18); eGFR NON AFRICAN AMERICAN > 90 mL/min (90-120)
[2018-02-17 11:00] VITALS: BP 111/74
[2018-02-17 20:00] VITALS: BP 115/79
[2018-02-18] VITALS: BP 106/68
[2018-02-18 04:00] VITALS: BP 107/69
[2018-02-18 06:40] LABS: CALC OSMOLALITY 264 mosm/kg (275-300); CALCIUM 8.3 mg/dL (8.5-10.1); CARBON DIOXIDE 32.1 mmol/L (21.0-32.0); CHLORIDE - SERUM 98 mmol/L (98-107); CREATININE - SERUM 0.5 mg/dL (0.6-1.3); GLUCOSE 93 mg/dL (74-106); PHOSPHOROUS 4.8 mg/dL (2.5-4.9); POTASSIUM - SERUM 4.1 mmol/L (3.5-5.1); SODIUM 133 mmol/L (136-145); UREA NITROGEN 11 mg/dL (7-18); eGFR NON AFRICAN AMERICAN > 90 mL/min (90-120)
[2018-02-18 06:43] LABS: MAGNESIUM - SERUM 1.3 mg/dL (1.8-2.4)
[2018-02-18 07:14] LABS: BASOPHILS 0.2 % (0-2); EOSINOPHILS 8.1 % (0-7); HEMATOCRIT 37.2 % (36.0-48.0); HEMOGLOBIN 12.4 g/dL (12-16); IMMATURE GRANULOCYTES 0.2 % (0-5); LYMPHOCYTES 22.8 % (15-50); MCH 31.3 pg (26.0-34.0); MCHC 33.3 g/dL (31.0-37.0); MCV 93.9 fL (80.0-100.0); MEAN PLATELET VOLUME 10.1 fL (7.4-10.4); MONOCYTES 10.6 % (2-11); NEUTROPHILS 58.1 % (40-80); RBC 3.96 10x6/uL (4.00-5.40); RDW 12.6 % (11.5-14.5); WBC 8.1 10x3/uL (4.8-10.8)
[2018-02-18 07:23] LABS: PLATELET COUNT 166 10x3/uL (130-400)
[2018-02-18 09:54] VITALS: BP 105/64
[2018-02-18 20:00] VITALS: BP 126/73
[2018-02-19] VITALS: BP 132/78
[2018-02-19 04:00] VITALS: BP 108/63
[2018-02-19 07:20] LABS: BASOPHILS 0.3 % (0-2); EOSINOPHILS 8.4 % (0-7); IMMATURE GRANULOCYTES 0.3 % (0-5); LYMPHOCYTES 25.3 % (15-50); MCH 31.1 pg (26.0-34.0); MCHC 33.3 g/dL (31.0-37.0); MCV 93.3 fL (80.0-100.0); MEAN PLATELET VOLUME 9.6 fL (7.4-10.4); MONOCYTES 11.9 % (2-11); NEUTROPHILS 53.8 % (40-80); RDW 12.7 % (11.5-14.5); WBC 7.9 10x3/uL (4.8-10.8)
[2018-02-19 07:21] LABS: HEMATOCRIT 29.1 % (36.0-48.0); HEMOGLOBIN 9.7 g/dL (12-16); PLATELET COUNT 209 10x3/uL (130-400); RBC 3.12 10x6/uL (4.00-5.40)
[2018-02-19 07:42] LABS: CALC OSMOLALITY 261 mosm/kg (275-300); CARBON DIOXIDE 31.1 mmol/L (21.0-32.0); CHLORIDE - SERUM 97 mmol/L (98-107); CREATININE - SERUM 0.5 mg/dL (0.6-1.3); GLUCOSE 85 mg/dL (74-106); PHOSPHOROUS 4.7 mg/dL (2.5-4.9); POTASSIUM - SERUM 3.8 mmol/L (3.5-5.1); SODIUM 132 mmol/L (136-145); eGFR NON AFRICAN AMERICAN > 90 mL/min (90-120)
[2018-02-19 07:45] LABS: MAGNESIUM - SERUM 1.8 mg/dL (1.8-2.4); UREA NITROGEN 8 mg/dL (7-18)
[2018-02-19 09:28] VITALS: BP 102/62
[2018-02-19 13:21] VITALS: BP 106/65
[2018-02-19 16:10] VITALS: BP 104/63
[2018-02-19 20:26] VITALS: BP 120/64
[2018-02-20] VITALS (14 sets, daily range): BP systolic 96–154; BP diastolic 46–74
[2018-02-20 08:16] LABS: CALC OSMOLALITY 264 mosm/kg (275-300); CALCIUM 8.6 mg/dL (8.5-10.1); CARBON DIOXIDE 33.6 mmol/L (21.0-32.0); CHLORIDE - SERUM 97 mmol/L (98-107); CREATININE - SERUM 0.6 mg/dL (0.6-1.3); GLUCOSE 118 mg/dL (74-106); POTASSIUM - SERUM 4.3 mmol/L (3.5-5.1); SODIUM 132 mmol/L (136-145); UREA NITROGEN 9 mg/dL (7-18); eGFR NON AFRICAN AMERICAN > 90 mL/min (90-120)
[2018-02-20 09:18] LABS: BASOPHILS 0.1 % (0-2); EOSINOPHILS 9.5 % (0-7); HEMATOCRIT 34.3 % (36.0-48.0); HEMOGLOBIN 11.4 g/dL (12-16); IMMATURE GRANULOCYTES 0.1 % (0-5); LYMPHOCYTES 22.6 % (15-50); MCH 31.4 pg (26.0-34.0); MCHC 33.2 g/dL (31.0-37.0); MCV 94.5 fL (80.0-100.0); MEAN PLATELET VOLUME 10.3 fL (7.4-10.4); MONOCYTES 13.4 % (2-11); NEUTROPHILS 54.3 % (40-80); PLATELET COUNT 228 10x3/uL (130-400); RBC 3.63 10x6/uL (4.00-5.40); RDW 12.6 % (11.5-14.5); WBC 7.5 10x3/uL (4.8-10.8)
[2018-02-21 02:00] VITALS: BP 95/56
[2018-02-21 04:00] VITALS: BP 104/50
[2018-02-21 05:21] LABS: BASOPHILS 0.2 % (0-2); EOSINOPHILS 0.9 % (0-7); HEMATOCRIT 30.3 % (36.0-48.0); IMMATURE GRANULOCYTES 0.2 % (0-5); LYMPHOCYTES 18.3 % (15-50); MCH 30.9 pg (26.0-34.0); MCV 93.5 fL (80.0-100.0); MEAN PLATELET VOLUME 9.6 fL (7.4-10.4); MONOCYTES 9.4 % (2-11); PLATELET COUNT 199 10x3/uL (130-400); RBC 3.24 10x6/uL (4.00-5.40); RDW 12.4 % (11.5-14.5)
[2018-02-21 05:28] LABS: WBC 5.6 10x3/uL (4.8-10.8)
[2018-02-21 06:00] VITALS: BP 109/59
[2018-02-21 06:06] LABS: ALBUMIN 2.4 g/dL (3.4-5.0); ALKALINE PHOSPHATASE 150 U/L (46-116); ALT (SGPT) 40 U/L (10-68); BILIRUBIN - TOTAL 0.87 mg/dL (0.2-1.3); CALC OSMOLALITY 267 mosm/kg (275-300); CALCIUM 8.6 mg/dL (8.5-10.1); CARBON DIOXIDE 31.1 mmol/L (21.0-32.0); CHLORIDE - SERUM 101 mmol/L (98-107); GLUCOSE 102 mg/dL (74-106); MAGNESIUM - SERUM 1.9 mg/dL (1.8-2.4); PHOSPHOROUS 4.3 mg/dL (2.5-4.9); POTASSIUM - SERUM 4.1 mmol/L (3.5-5.1); PROTEIN - SERUM 6.3 g/dL (6.4-8.2); SODIUM 135 mmol/L (136-145); UREA NITROGEN 7 mg/dL (7-18)
[2018-02-21 06:09] LABS: CREATININE - SERUM 0.4 mg/dL (0.6-1.3); eGFR NON AFRICAN AMERICAN > 90 mL/min (90-120)
[2018-02-21 20:00] VITALS: BP 115/57
[2018-02-21 22:00] VITALS: BP 100/49
[2018-02-22] VITALS: BP 92/46
[2018-02-22 02:00] VITALS: BP 105/41
[2018-02-22 04:00] VITALS: BP 96/57
[2018-02-22 05:50] LABS: BASOPHILS 0.2 % (0-2); EOSINOPHILS 7.8 % (0-7); HEMATOCRIT 31.2 % (36.0-48.0); IMMATURE GRANULOCYTES 0.2 % (0-5); MCH 30.4 pg (26.0-34.0); MCHC 32.1 g/dL (31.0-37.0); MCV 94.8 fL (80.0-100.0); MONOCYTES 3.3 % (2-11); NEUTROPHILS 61.5 % (40-80); PLATELET COUNT 216 10x3/uL (130-400); RBC 3.29 10x6/uL (4.00-5.40); RDW 12.6 % (11.5-14.5)
[2018-02-22 06:00] VITALS: BP 84/44
[2018-02-22 06:12] LABS: ALBUMIN 2.4 g/dL (3.4-5.0); ALKALINE PHOSPHATASE 150 U/L (46-116); ALT (SGPT) 43 U/L (10-68); BILIRUBIN - TOTAL 0.69 mg/dL (0.2-1.3); CALC OSMOLALITY 269 mosm/kg (275-300); CALCIUM 8.1 mg/dL (8.5-10.1); CARBON DIOXIDE 31.1 mmol/L (21.0-32.0); CHLORIDE - SERUM 99 mmol/L (98-107); CREATININE - SERUM 0.6 mg/dL (0.6-1.3); GLUCOSE 80 mg/dL (74-106); MAGNESIUM - SERUM 1.7 mg/dL (1.8-2.4); PHOSPHOROUS 4.3 mg/dL (2.5-4.9); POTASSIUM - SERUM 3.7 mmol/L (3.5-5.1); PROTEIN - SERUM 6.2 g/dL (6.4-8.2); SODIUM 136 mmol/L (136-145); UREA NITROGEN 9 mg/dL (7-18); eGFR NON AFRICAN AMERICAN > 90 mL/min (90-120)
[2018-02-22 19:47] VITALS: BP 84/46
[2018-02-22 23:37] VITALS: BP 93/49
[2018-02-23 03:39] VITALS: BP 94/56
[2018-02-23 05:08] LABS: BASOPHILS 0.2 % (0-2); EOSINOPHILS 10.1 % (0-7); HEMATOCRIT 30.3 % (36.0-48.0); HEMOGLOBIN 9.7 g/dL (12-16); IMMATURE GRANULOCYTES 0.2 % (0-5); LYMPHOCYTES 28.2 % (15-50); MCH 30.1 pg (26.0-34.0); MCV 94.1 fL (80.0-100.0); MEAN PLATELET VOLUME 9.8 fL (7.4-10.4); MONOCYTES 1.5 % (2-11); NEUTROPHILS 59.8 % (40-80); PLATELET COUNT 198 10x3/uL (130-400); RBC 3.22 10x6/uL (4.00-5.40); RDW 12.5 % (11.5-14.5); WBC 5.4 10x3/uL (4.8-10.8)
[2018-02-23 05:48] LABS: ALBUMIN 2.3 g/dL (3.4-5.0); ALKALINE PHOSPHATASE 132 U/L (46-116); ALT (SGPT) 34 U/L (10-68); BILIRUBIN - TOTAL 0.62 mg/dL (0.2-1.3); CARBON DIOXIDE 33.3 mmol/L (21.0-32.0); CHLORIDE - SERUM 99 mmol/L (98-107); GLUCOSE 85 mg/dL (74-106); MAGNESIUM - SERUM 1.8 mg/dL (1.8-2.4); POTASSIUM - SERUM 3.7 mmol/L (3.5-5.1); SODIUM 137 mmol/L (136-145)
[2018-02-23 05:52] LABS: CALC OSMOLALITY 269 mosm/kg (275-300); CREATININE - SERUM 0.4 mg/dL (0.6-1.3); UREA NITROGEN 5 mg/dL (7-18); eGFR NON AFRICAN AMERICAN > 90 mL/min (90-120)
[2018-02-23 08:20] VITALS: BP 100/56
[2018-02-23 12:06] VITALS: BP 106/58
[2018-02-23 16:41] VITALS: BP 135/75
[2018-02-23 21:09] VITALS: BP 91/53
[2018-02-24 00:28] VITALS: BP 95/56
[2018-02-24 04:50] VITALS: BP 112/63
[2018-02-24 05:02] VITALS: BP 117/63
[2018-02-24 05:47] LABS: BASOPHILS 0.2 % (0-2); EOSINOPHILS 14.1 % (0-7); HEMATOCRIT 31.1 % (36.0-48.0); HEMOGLOBIN 10.1 g/dL (12-16); IMMATURE GRANULOCYTES 0.2 % (0-5); LYMPHOCYTES 23.7 % (15-50); MCH 30.3 pg (26.0-34.0); MCHC 32.5 g/dL (31.0-37.0); MCV 93.4 fL (80.0-100.0); MEAN PLATELET VOLUME 9.8 fL (7.4-10.4); MONOCYTES 1.6 % (2-11); NEUTROPHILS 60.2 % (40-80); PLATELET COUNT 163 10x3/uL (130-400); RBC 3.33 10x6/uL (4.00-5.40); RDW 12.4 % (11.5-14.5); WBC 4.3 10x3/uL (4.8-10.8)
[2018-02-24 06:06] LABS: ALBUMIN 2.4 g/dL (3.4-5.0); ALKALINE PHOSPHATASE 144 U/L (46-116); ALT (SGPT) 30 U/L (10-68); BILIRUBIN - TOTAL 0.54 mg/dL (0.2-1.3); CALC OSMOLALITY 269 mosm/kg (275-300); CALCIUM 8.3 mg/dL (8.5-10.1); CARBON DIOXIDE 31.2 mmol/L (21.0-32.0); CHLORIDE - SERUM 100 mmol/L (98-107); CREATININE - SERUM 0.3 mg/dL (0.6-1.3); GLUCOSE 88 mg/dL (74-106); MAGNESIUM - SERUM 1.8 mg/dL (1.8-2.4); PHOSPHOROUS 3.4 mg/dL (2.5-4.9); POTASSIUM - SERUM 3.8 mmol/L (3.5-5.1); PROTEIN - SERUM 6.2 g/dL (6.4-8.2); SODIUM 137 mmol/L (136-145); eGFR NON AFRICAN AMERICAN > 90 mL/min (90-120)
[2018-02-24 06:12] LABS: UREA NITROGEN 3 mg/dL (7-18)
[2018-02-24 08:25] VITALS: BP 99/49
[2018-02-24 11:57] VITALS: BP 89/48
[2018-02-24 16:27] VITALS: BP 102/66
== END 2018-02-24 22:30 | disposition home health service (06) | DRG 326 ==
LOC: D.ER 22:46 → D.M2 02-03 02:45 → D.EDHOLD 02-03 02:45 → D.MS 02-03 02:45 → D.M2 02-03 06:27 → D.MS 02-19 20:08
PROVIDERS: Emergency Medicine; Family Medicine; Internal Medicine Nephrology; Surgery
PROC: 0D9670Z Drainage of Stomach with Drainage Device, Via Natural or Artificial Opening (ICD-10-PCS; principal; 2018-02-03)
PROC: 0DNU4ZZ Release Omentum, Percutaneous Endoscopic Approach (ICD-10-PCS; 2018-02-16)
PROC: 0DBU0ZZ Excision of Omentum, Open Approach (ICD-10-PCS; 2018-02-16)
PROC: 0DH60UZ Insertion of Feeding Device into Stomach, Open Approach (ICD-10-PCS; 2018-02-16 16:30)
PROC: 3E03305 Introduction of Other Antineoplastic into Peripheral Vein, Percutaneous Approach (ICD-10-PCS; 2018-02-20)
DX: C78.6 Secondary malignant neoplasm of retroperitoneum and peritoneum (principal); E43 Unspecified severe protein-calorie malnutrition; C18.1 Malignant neoplasm of appendix; F17.203 Nicotine dependence unspecified, with withdrawal; K56.7 Ileus, unspecified; G89.3 Neoplasm related pain (acute) (chronic); J44.9 Chronic obstructive pulmonary disease, unspecified; F41.9 Anxiety disorder, unspecified; Z68.20 Body mass index [BMI] 20.0-20.9, adult; F32.9 Major depressive disorder, single episode, unspecified

== ENCOUNTER → 2018-02-25 14:35 | Outpatient (CLI) | payer OTHER ==
[~2018-02-25 14:35] MED LIST changes: +GABAPENTIN100 MG PO
[2018-02-25 14:49] LABS: BASOPHILS 0 % (0-2); EOSINOPHILS 2.7 % (0-7); HEMOGLOBIN 12.1 g/dL (12-16); IMMATURE GRANULOCYTES 0.4 % (0-5); LYMPHOCYTES 23.6 % (15-50); MCHC 33.6 g/dL (31.0-37.0); MCV 92.3 fL (80.0-100.0); MEAN PLATELET VOLUME 10.1 fL (7.4-10.4); MONOCYTES 1.3 % (2-11); RDW 12.4 % (11.5-14.5); WBC 4.5 10x3/uL (4.8-10.8)
[2018-02-25 15:08] LABS: PLATELET COUNT 206 10x3/uL (130-400)
[2018-02-25 15:11] LABS: ALBUMIN 2.6 g/dL (3.4-5.0); ALKALINE PHOSPHATASE 153 U/L (46-116); ALT (SGPT) 32 U/L (10-68); BILIRUBIN - TOTAL 0.48 mg/dL (0.2-1.3); CALCIUM 8.1 mg/dL (8.5-10.1); CARBON DIOXIDE 28.1 mmol/L (21.0-32.0); CHLORIDE - SERUM 101 mmol/L (98-107); GLUCOSE 125 mg/dL (74-106); MAGNESIUM - SERUM 1.8 mg/dL (1.8-2.4); POTASSIUM - SERUM 3.3 mmol/L (3.5-5.1); PRE-ALBUMIN 12.9 mg/dL (18.0-35.7); PROTEIN - SERUM 6.9 g/dL (6.4-8.2); SODIUM 138 mmol/L (136-145); TRIGLYCERIDE 98 mg/dL (30-200)
[2018-02-25 15:17] LABS: CALC OSMOLALITY 274 mosm/kg (275-300); CREATININE - SERUM 0.4 mg/dL (0.6-1.3); PHOSPHOROUS 1.6 mg/dL (2.5-4.9); UREA NITROGEN 6 mg/dL (7-18); eGFR NON AFRICAN AMERICAN > 90 mL/min (90-120)
== END | disposition home or self-care (01) ==
LOC: D.LABREF 14:35
PROVIDERS: Family Medicine
DX: K56.609 Unspecified intestinal obstruction, unspecified as to partial versus complete obstruction (principal)

== ENCOUNTER → 2018-03-02 18:08 | Outpatient (CLI) | payer OTHER ==
[2018-03-02 19:18] LABS: BASOPHILS 0.2 % (0-2); EOSINOPHILS 16.2 % (0-7); HEMATOCRIT 38.5 % (36.0-48.0); HEMOGLOBIN 12.4 g/dL (12-16); IMMATURE GRANULOCYTES 0.2 % (0-5); LYMPHOCYTES 37.7 % (15-50); MCH 30.8 pg (26.0-34.0); MCHC 32.2 g/dL (31.0-37.0); MCV 95.5 fL (80.0-100.0); MEAN PLATELET VOLUME 10.2 fL (7.4-10.4); MONOCYTES 7.5 % (2-11); NEUTROPHILS 38.2 % (40-80); PLATELET COUNT 240 10x3/uL (130-400); RBC 4.03 10x6/uL (4.00-5.40); RDW 12.9 % (11.5-14.5); WBC 5.8 10x3/uL (4.8-10.8)
[2018-03-02 19:39] LABS: ALBUMIN 3.4 g/dL (3.4-5.0); ALKALINE PHOSPHATASE 123 U/L (46-116); ALT (SGPT) 41 U/L (10-68); C-REACTIVE PROTEIN 0.5 mg/dL (0.0-0.9); CALC OSMOLALITY 268 mosm/kg (275-300); CALCIUM 8.6 mg/dL (8.5-10.1); CHLORIDE - SERUM 91 mmol/L (98-107); CREATININE - SERUM 0.7 mg/dL (0.6-1.3); GLUCOSE 80 mg/dL (74-106); MAGNESIUM - SERUM 2.3 mg/dL (1.8-2.4); PROTEIN - SERUM 7.5 g/dL (6.4-8.2); SODIUM 135 mmol/L (136-145); UREA NITROGEN 12 mg/dL (7-18); eGFR NON AFRICAN AMERICAN 89 mL/min (90-120)
[2018-03-02 20:00] LABS: CARBON DIOXIDE 42.8 mmol/L (21.0-32.0); POTASSIUM - SERUM 1.9 mmol/L (3.5-5.1)
== END | disposition home or self-care (01) ==
LOC: D.LABREF 18:08
PROVIDERS: Family Medicine
DX: K56.600 Partial intestinal obstruction, unspecified as to cause (principal)

== ENCOUNTER 2018-03-03 13:41 | Emergency (ER) | payer OTHER ==
[~2018-03-03] VITALS: Ht 157.5 cm; Wt 45.5 kg
[2018-03-03 13:56] VITALS: Ht 157.5 cm; Wt 45.5 kg
[2018-03-03 14:28] LABS: BASOPHILS 0.2 % (0-2); EOSINOPHILS 13.7 % (0-7); HEMOGLOBIN 12.4 g/dL (12-16); IMMATURE GRANULOCYTES 0.2 % (0-5); LYMPHOCYTES 37.1 % (15-50); MCH 30.8 pg (26.0-34.0); MCHC 33.5 g/dL (31.0-37.0); MEAN PLATELET VOLUME 9.8 fL (7.4-10.4); MONOCYTES 7.8 % (2-11); PLATELET COUNT 234 10x3/uL (130-400); RBC 4.03 10x6/uL (4.00-5.40); RDW 12.8 % (11.5-14.5); WBC 5.6 10x3/uL (4.8-10.8)
[2018-03-03 14:29] LABS: MCV 91.8 fL (80.0-100.0)
[2018-03-03 14:57] LABS: ALBUMIN 3.2 g/dL (3.4-5.0); ALKALINE PHOSPHATASE 124 U/L (46-116); ALT (SGPT) 37 U/L (10-68); BILIRUBIN - TOTAL 0.47 mg/dL (0.2-1.3); CALCIUM 8.5 mg/dL (8.5-10.1); CHLORIDE - SERUM 88 mmol/L (98-107); CREATININE - SERUM 0.6 mg/dL (0.6-1.3); PROTEIN - SERUM 7.3 g/dL (6.4-8.2); SODIUM 135 mmol/L (136-145); UREA NITROGEN 11 mg/dL (7-18); eGFR NON AFRICAN AMERICAN > 90 mL/min (90-120)
[2018-03-03 15:01] LABS: CALC OSMOLALITY 270 mosm/kg (275-300); GLUCOSE 140 mg/dL (74-106)
[2018-03-03 15:04] LABS: CARBON DIOXIDE 45.4 mmol/L (21.0-32.0); POTASSIUM - SERUM 2.5 mmol/L (3.5-5.1)
[2018-03-03 20:14] VITALS: BP 99/65
== END 2018-03-03 20:14 | disposition home or self-care (01) ==
LOC: D.ER 13:41
PROVIDERS: Family Medicine
DX: E87.6 Hypokalemia (principal); C78.6 Secondary malignant neoplasm of retroperitoneum and peritoneum; F17.200 Nicotine dependence, unspecified, uncomplicated

== ENCOUNTER → 2018-03-13 14:47 | Outpatient (CLI) | payer OTHER ==
[2018-03-03 13:56] VITALS: BMI 18.3
[2018-03-13 16:09] LABS: BASOPHILS 1.4 % (0-2); EOSINOPHILS 7.9 % (0-7); HEMATOCRIT 37.6 % (36.0-48.0); HEMOGLOBIN 12.5 g/dL (12-16); IMMATURE GRANULOCYTES 0.2 % (0-5); LYMPHOCYTES 48.3 % (15-50); MCH 31.5 pg (26.0-34.0); MCHC 33.2 g/dL (31.0-37.0); MCV 94.7 fL (80.0-100.0); MEAN PLATELET VOLUME 10.7 fL (7.4-10.4); MONOCYTES 13.4 % (2-11); NEUTROPHILS 28.8 % (40-80); PLATELET COUNT 199 10x3/uL (130-400); RBC 3.97 10x6/uL (4.00-5.40); RDW 14.6 % (11.5-14.5); WBC 4.9 10x3/uL (4.8-10.8)
[2018-03-13 16:44] LABS: ALBUMIN 3.2 g/dL (3.4-5.0); ALKALINE PHOSPHATASE 110 U/L (46-116); ALT (SGPT) 26 U/L (10-68); BILIRUBIN - TOTAL 0.42 mg/dL (0.2-1.3); CALC OSMOLALITY 272 mosm/kg (275-300); CALCIUM 8.8 mg/dL (8.5-10.1); CARBON DIOXIDE 31.7 mmol/L (21.0-32.0); CHLORIDE - SERUM 100 mmol/L (98-107); CREATININE - SERUM 0.5 mg/dL (0.6-1.3); GLUCOSE 67 mg/dL (74-106); MAGNESIUM - SERUM 2.2 mg/dL (1.8-2.4); PHOSPHOROUS 4.5 mg/dL (2.5-4.9); POTASSIUM - SERUM 3.8 mmol/L (3.5-5.1); PROTEIN - SERUM 7.2 g/dL (6.4-8.2); SODIUM 138 mmol/L (136-145); UREA NITROGEN 9 mg/dL (7-18); eGFR NON AFRICAN AMERICAN > 90 mL/min (90-120)
== END | disposition home or self-care (01) ==
LOC: D.LABREF 14:47
PROVIDERS: Family Medicine
DX: K56.609 Unspecified intestinal obstruction, unspecified as to partial versus complete obstruction (principal)

== ENCOUNTER → 2018-03-16 17:41 | Outpatient (CLI) | payer OTHER ==
[2018-03-03 13:56] VITALS: BMI 18.3
[2018-03-16 18:07] LABS: BASOPHILS 0.8 % (0-2); EOSINOPHILS 6.2 % (0-7); HEMATOCRIT 36.7 % (36.0-48.0); IMMATURE GRANULOCYTES 0.2 % (0-5); LYMPHOCYTES 41.7 % (15-50); MCH 31.1 pg (26.0-34.0); MCHC 32.7 g/dL (31.0-37.0); MCV 95.1 fL (80.0-100.0); MONOCYTES 10.8 % (2-11); NEUTROPHILS 40.3 % (40-80); PLATELET COUNT 176 10x3/uL (130-400); RBC 3.86 10x6/uL (4.00-5.40); RDW 14.9 % (11.5-14.5)
[2018-03-16 18:25] LABS: ALKALINE PHOSPHATASE 97 U/L (46-116); ALT (SGPT) 19 U/L (10-68); BILIRUBIN - TOTAL 0.36 mg/dL (0.2-1.3); CALC OSMOLALITY 279 mosm/kg (275-300); CALCIUM 8.1 mg/dL (8.5-10.1); CARBON DIOXIDE 31.2 mmol/L (21.0-32.0); CHLORIDE - SERUM 103 mmol/L (98-107); CREATININE - SERUM 0.6 mg/dL (0.6-1.3); MAGNESIUM - SERUM 1.9 mg/dL (1.8-2.4); PHOSPHOROUS 4.1 mg/dL (2.5-4.9); POTASSIUM - SERUM 3.7 mmol/L (3.5-5.1); PROTEIN - SERUM 6.2 g/dL (6.4-8.2); SODIUM 141 mmol/L (136-145); UREA NITROGEN 6 mg/dL (7-18); eGFR NON AFRICAN AMERICAN > 90 mL/min (90-120)
[2018-03-16 18:29] LABS: GLUCOSE 113 mg/dL (74-106)
== END | disposition home or self-care (01) ==
LOC: D.LABREF 17:41
PROVIDERS: Family Medicine
DX: K56.609 Unspecified intestinal obstruction, unspecified as to partial versus complete obstruction (principal)

== ENCOUNTER → 2018-03-23 16:35 | Outpatient (CLI) | payer OTHER ==
[2018-03-03 13:56] VITALS: BMI 18.3
[2018-03-23 18:03] LABS: ALBUMIN 2.9 g/dL (3.4-5.0); ALKALINE PHOSPHATASE 96 U/L (46-116); ALT (SGPT) 14 U/L (10-68); BILIRUBIN - TOTAL 0.39 mg/dL (0.2-1.3); C-REACTIVE PROTEIN 1.4 mg/dL (0.0-0.9); CALC OSMOLALITY 271 mosm/kg (275-300); CALCIUM 8.2 mg/dL (8.5-10.1); CARBON DIOXIDE 31.8 mmol/L (21.0-32.0); CHLORIDE - SERUM 98 mmol/L (98-107); CHOL - HDL RATIO 5.6 ratio (2.3-4.1); CHOLESTEROL, TOTAL 151 mg/dL (0-200); CREATININE - SERUM 0.5 mg/dL (0.6-1.3); GLUCOSE 104 mg/dL (74-106); HDL CHOLESTEROL 27 mg/dL (32-96); LDL CHOLESTEROL 93 mg/dL (0-100); LDL-HDL RATIO 3.4 ratio (1.5-3.5); MAGNESIUM - SERUM 1.7 mg/dL (1.8-2.4); PHOSPHOROUS 3.1 mg/dL (2.5-4.9); POTASSIUM - SERUM 3.8 mmol/L (3.5-5.1); PRE-ALBUMIN 15.3 mg/dL (18.0-35.7); PROTEIN - SERUM 6.6 g/dL (6.4-8.2); SODIUM 137 mmol/L (136-145); TRIGLYCERIDE 157 mg/dL (30-200); UREA NITROGEN 8 mg/dL (7-18); eGFR NON AFRICAN AMERICAN > 90 mL/min (90-120)
[2018-03-23 18:25] LABS: BASOPHILS 0.4 % (0-2); EOSINOPHILS 11.4 % (0-7); HEMATOCRIT 36.8 % (36.0-48.0); HEMOGLOBIN 12.3 g/dL (12-16); IMMATURE GRANULOCYTES 0.1 % (0-5); LYMPHOCYTES 30.3 % (15-50); MCH 31.5 pg (26.0-34.0); MCHC 33.4 g/dL (31.0-37.0); MCV 94.4 fL (80.0-100.0); MEAN PLATELET VOLUME 11.8 fL (7.4-10.4); MONOCYTES 7.6 % (2-11); NEUTROPHILS 50.2 % (40-80); PLATELET COUNT 170 10x3/uL (130-400); RDW 14.9 % (11.5-14.5); WBC 7.2 10x3/uL (4.8-10.8)
== END | disposition home or self-care (01) ==
LOC: D.LABREF 16:35
PROVIDERS: Family Medicine
DX: C48.2 Malignant neoplasm of peritoneum, unspecified (principal)

== ENCOUNTER 2018-03-30 08:48 | Outpatient (CLI) | payer OTHER ==
[2018-03-03 13:56] VITALS: BMI 18.3
--- NOTE | ~2018-03-30 | HEMODYNAMI ---
PATIENT:VIRGIL KHAN MEDICAL RECORD: [id number] : 51 LOCATION:[facility] ADMISSION DATE: 03/30/18 Generatedon:03/30/201811:18 Patient name: VIRGIL KHAN Patient #: [id number] SSN: D OB: 1955 Date of study: 03/30/2018 Page: Of Hemodynamic Procedure Report Patient Data Patient Demographics Procedure consent was obtained First Name: VIRGIL Gender: Female Last Name: ERIN : 1955 Middle Initial: A Age: 62 year(s) Patient #: [id number] Race: Unknown Additional ID: [id number] Contact details [address]: [address] [place] [address] State: [place] City: [place] Zip code: [address] Admission Admission Data Admission Date: 03/30/2018 Admission Time: 8:48 Procedure Procedure Types Cath Procedure Peripheral Cath Diagnostic Procedure Cath Peripheral Gastric G J Tube Replacement Procedure Description Procedure Date Procedure Date: 03/30/2018 Procedure Start Time: 10:33 Procedure Staff Name Function Lux Simmons MD Performing Physician Laisha Jefferson RT Hazardous Substances Scientist Vickie Juarez RN Nurse Donavan Covarrubias RT Scrub Procedure Data Cath Procedure Fluoroscopy Diagnostic fluoroscopy Total fluoroscopy Time: 0 time: 0 min min Diagnostic fluoroscopy Total fluoroscopy dose: 87 dose: 87 mGy mGy Contrast Material Contrast Material Type Amount (ml) Isovue 300 35 Diagnostic catheters Device Type Used For End Catheter Placement HERO introducer ([id number]) Merit Impress KA2 5Fr 65CM catheter ([id number]) Procedure Medications Medication Administration Route Dosage Heparin Flush Bag added to field 1 bags (1000units/500ml NS) Lidocaine 1% added to field 20 Oxygen etCO2 Nasal cannula 3 l/min Fentanyl I.V. 50 mcg Versed I.V. 1 mg Versed I.V. 2 mg Fentanyl I.V. 50 mcg Fentanyl I.V. 50 mcg Versed I.V. 1 mg Hemodynamics Rest Heart Rate: 130 (bpm) Snapshots Pre Cath Intra NCS Post Cath Vital Signs Time Heart Resp SPO2 etCO2 NIBP (mmHg) Rhythm Pain Status Sedation Rate (ipm) (%) (mmHg) Level (bpm) 10:22:49 79 18 17.2 139/84(115) 1 0 (11) , No 10(A) degree pain AV Block 10:27:03 91 18 100 30.7 128/75(114) 1 0 (11) , No 10(A) degree pain AV Block 10:31:10 86 16 100 32.2 134/77(118) 1 0 (11) , No 9(A) degree pain AV Block 10:35:18 93 17 99 24.7 141/83(128) 1 0 (11) , No 8(A) degree pain AV Block 10:39:30 92 12 97 0 114/71(100) 1 0 (11) , No 8(A) degree pain AV Block 10:43:50 104 21 99 20.9 109/61(78) 1 4 (11) , 8(A) degree Distressing AV Block 10:48:37 99 22 100 0 157/86(129) 1 1 (11) , 8(A) degree Very mild AV Block 10:52:51 91 8 97 0 122/64(94) 1 0 (11) , No 8(A) degree pain AV Block 10:56:57 88 14 98 19.4 123/73(101) 1 0 (11) , No 8(A) degree pain AV Block 11:01:03 88 13 98 0 131/75(116) 1 0 (11) , No 8(A) degree pain AV Block 11:05:11 90 12 98 17.9 121/65(89) 1 0 (11) , No 8(A) degree pain AV Block 11:09:18 88 12 98 36.6 114/69(93) 1 0 (11) , No 8(A) degree pain AV Block 11:13:22 88 12 99 0 128/70(99) 1 0 (11) , No 8(A) degree pain AV Block 11:17:32 82 13 99 10.4 127/67(101) 1 0 (11) , No 8(A) degree pain AV Block Medications Time Medication Route Dose Verified Delivered Reason Notes Effec tiveness by by 10:32:53 Heparin Flush added 1 Lux Wasserman Per Bag to bags Iris Simmons protocol (1000units/500ml field MD MCADAMS NS) 10:33:04 Lidocaine 1% added 20ml Lux Wasserman Per to vial Iris Simmons protocol field MD MCADAMS 10:33:15 Oxygen etCO2 3 Lux Johnston Per Nasal l/min Iris Juarez RN protocol cannula MD 10:36:27 Fentanyl I.V. 50 Lux Arriazaine for Mostl y mcg Iris Juarez RN sedation sleeping @ 10:49:05 10:36:41 Versed I.V. 1 mg Lux Arriazaine for Mostl y Iris Juarez RN sedation sleeping @ 10:49:02 10:48:18 Versed I.V. 2 mg Lux Arriazaine for Mostl y Iris Juarez RN sedation sleeping @ 10:57:08 10:48:29 Fentanyl I.V. 50 Lux Arriazaine for Mostl y mcg Iris Juarez RN sedation sleeping @ 10:57:11 10:56:52 Fentanyl I.V. 50 Lux Arriazaine for mcg Iris Juarez RN sedation 10:57:01 Versed I.V. 1 mg Lux Arriazaine for Iris Juarez RN sedation Procedure Log Time Note 9:15:02 Use device set IR Diagnostic 9:16:32 Sterile Angiographic Pack opened to sterile field. 9:16:33 Bag Decanter (2002S) opened to sterile field. 9:22:31 JEJUNAL 18Fr 45cm Tube ([id number]) opened to sterile field. 9:22:39 Time tracking: Regular hours (M-F 7:00 - 5:00) 9:22:55 Plan of Care:Hemodynamics will remain stable., Cardiac rhythm will remain stable., Comfort level will be maintained., Respiratory function will remain adequate., Patient/ family verbilizes understanding of procedure., Procedure tolerated without complication., Recovers from procedure without complications.. 9:23:03 Patient received from Other to IR Alert and oriented. Tansferred to table in Supine position. 9:23:07 Signed procedure consent form obtained from patient. 9:23:15 Pre-procedure instructions explained to patient. 9:23:16 Pre-op teaching completed and patient verbalized understanding. 9:23:19 Family in waiting room. 9:23:21 Patient NPO since Midnight. 9:23:37 - 9:23:49 Left abdomen area was prepped with chlora-prep and draped in sterile fashion 9:24:04 - 9:30:[address] SIMMONS NO LAB NEEDED FOR PROCEDURE JUST SEDATION H&P ON CHART 10:10:14 ECG and BP/O2 sat monitors applied to patient. 10:10:20 H&P Date Dictated: 03/30/2018 H&P Addendum completed by physician on day of procedure. (MUST COMPLETE FOR ALL OUTPATIENTS). 10:10:24 Is the patient allergic to Iodine/contrast media? No. 10:10:26 Is patient on blood thinner?No 10:10:28 - 10:10:29 ----Pre-sedation anethsthesia assessment.---- 10:10:35 Previous problem with sedation/anesthesia? No ? 10:10:44 Snore? No 10:10:47 Sleep apnea? No 10:10:49 Deviated septum? No 10:10:51 Opens mouth fully? Yes 10:10:53 Sticks out tongue? Yes 10:11:28 Dentures? No ? 10:11:38 IV patent on arrival in port with 0.9% NaCl at [facility]. 10:11:43 Sharps counted by scrub and verified by Ar 10:11:43 Alarms reviewed by Alisa Norris 10:21:41 Vital chart was started 10::44 Baseline sample Acquired. 10:: Baseline sample Acquired. 10::24 Full Disclosure recording started 10::26 - 10:30:25 Physician arrived 10:31:03 --------ALL STOP TIME OUT------ 10:31:05 Final Timeout: patient, procedure, and site verified with staff and physician. All members of the team are in agreement. 10:32:53 Heparin Flush Bag (1000units/500ml NS) 1 bags added to field was administered by Lux Simmons MD; Per protocol; 10:33:04 Lidocaine 1% 20ml vial added to field was administered by Lux hylton MD; Per protocol; 10:33:15 Oxygen 3 l/min etCO2 Nasal cannula was administered by Vickie Juarez RN; Per protocol; 10:33:40 Procedure started. 10:33:46 Local anesthetic to Abdominal area with Lidocaine 1% by Lux Simmons MD.INITIAL ACCESS ONLY 10:36:27 Fentanyl 50 mcg I.V. was administered by Vickie Juarez RN; for sedation; ::41 Versed 1 mg I.V. was administered by Vickie Juarez RN; for sedation; 10:38:51 A HERO introducer ([id number]) was advanced over the wire and used for . 10:41:35 [facility] .035 145 glide wire ([id number]) opened to sterile field. 10:48:18 Versed 2 mg I.V. was administered by Vickie Juarez RN; for sedation; 10:48:29 Fentanyl 50 mcg I.V. was administered by Vickie Juarez RN; for sedation; 10:49:02 Effectiveness of Versed delivered @ 10:36:41 is: Mostly sleeping 10:49:05 Effectiveness of Fentanyl delivered @ 10:36:27 is: Mostly sleeping 10:51:44 A Differential Dynamics KA2 5Fr 65CM catheter ([id number]) was advanced over the wire and used for . 10:54:46 [place] 180 wire ([id number]) opened to sterile field. 10:56:52 Fentanyl 50 mcg I.V. was administered by Vickie Juarez RN; for sedation; 10:57:01 Versed 1 mg I.V. was administered by Vickie Juarez RN; for sedation; 10:57:08 Effectiveness of Versed delivered @ 10:48:18 is: Mostly sleeping 10:57:11 Effectiveness of Fentanyl delivered @ 10:48:29 is: Mostly sleeping 11:13:01 18fr jejunal tube inserted 11:13:08 Procedure ended.(Physican Out) 11:13:23 Contrast amount:Isovue 300 35ml. 11:13:30 Fluoroscopy time 00.00 minutes. 11:13:36 Fluoroscopy dose: 87 mGy 11:13:36 Flurop Dose total: 87 11:17:06 Procedure and supply charges have been captured, reviewed, submitted an d are correct. 11:18:10 Vital chart was stopped Device Usage Item Name Manufacture Quantity Catalog Hospital Part Current Minimal Lot# / Number Charge Number Stock Stock Serial# Code Sterile Cardinal 1 [id number] [id number] 5 Angiographic Health Pack Bag Decanter Microtek 1 [id number] 84176 [id number] 5 () [employer] JEJUNAL 18Fr [place] 1 [id number] 070509 057821 5 45cm Tube CardLab ([id number]) HERO [employer] 1 [id number] [id number] [id number] 5 introducer ([id number]) [facility] Medical 1 [id number] 965559 [id number] [id number] 5 [id number] .035 145 glide wire ([id number]) Merit Merit 1 [id number] 953617 124210 5 Impress [facility] Medical 5Fr 65CM catheter ([id number]) Webster 180 [employer] 1 M32967 389643 222995 [id number] 5 [id number] wire ([id number]) Signature Audit [place] Stage Time Signature Unsigned Intra-Procedure 03/30/2018 Laisha Jefferson 11:18:06 AM RT(R) [facility] [address] [place] [address]
== END 2018-03-30 17:00 | disposition home or self-care (01) ==
LOC: D.SP 08:48
DX: K31.84 Gastroparesis (principal); C7A.00 Malignant carcinoid tumor of unspecified site; C7B.00 Secondary carcinoid tumors, unspecified site; E46 Unspecified protein-calorie malnutrition; Z01.812 Encounter for preprocedural laboratory examination

== ENCOUNTER → 2018-03-31 13:05 | Outpatient (CLI) | payer OTHER ==
[2018-03-03 13:56] VITALS: BMI 18.3
[2018-03-31 13:53] LABS: ALBUMIN 3.1 g/dL (3.4-5.0); ALKALINE PHOSPHATASE 98 U/L (46-116); ALT (SGPT) 13 U/L (10-68); BILIRUBIN - TOTAL 0.46 mg/dL (0.2-1.3); CALC OSMOLALITY 273 mosm/kg (275-300); CARBON DIOXIDE 31.8 mmol/L (21.0-32.0); CHLORIDE - SERUM 100 mmol/L (98-107); CREATININE - SERUM 0.5 mg/dL (0.6-1.3); GLUCOSE 131 mg/dL (74-106); MAGNESIUM - SERUM 1.8 mg/dL (1.8-2.4); PHOSPHOROUS 4.7 mg/dL (2.5-4.9); POTASSIUM - SERUM 3.9 mmol/L (3.5-5.1); PROTEIN - SERUM 6.6 g/dL (6.4-8.2); SODIUM 137 mmol/L (136-145); UREA NITROGEN 8 mg/dL (7-18); eGFR NON AFRICAN AMERICAN > 90 mL/min (90-120)
[2018-03-31 14:32] LABS: BASOPHILS 0.4 % (0-2); HEMATOCRIT 37.5 % (36.0-48.0); HEMOGLOBIN 12.4 g/dL (12-16); IMMATURE GRANULOCYTES 0.1 % (0-5); LYMPHOCYTES 26.7 % (15-50); MCH 31.8 pg (26.0-34.0); MCHC 33.1 g/dL (31.0-37.0); MCV 96.2 fL (80.0-100.0); MEAN PLATELET VOLUME 10.8 fL (7.4-10.4); MONOCYTES 7.9 % (2-11); NEUTROPHILS 56.9 % (40-80); RDW 15.2 % (11.5-14.5); WBC 7.3 10x3/uL (4.8-10.8)
[2018-03-31 14:33] LABS: PLATELET COUNT 214 10x3/uL (130-400)
== END | disposition home or self-care (01) ==
LOC: D.LABREF 13:05
PROVIDERS: Family Medicine
DX: K56.600 Partial intestinal obstruction, unspecified as to cause (principal)

== ENCOUNTER 2018-04-07 02:32 | Inpatient (IN) | payer OTHER ==
[~2018-04-07] VITALS: Ht 157.5 cm; Wt 49.4 kg
[2018-04-07] VITALS (7 sets, daily range): BP systolic 91–126; BP diastolic 50–80; Ht 157.5 cm; Wt 49.4 kg
[2018-04-07 03:53] LABS: BASOPHILS 0.2 % (0-2); EOSINOPHILS 1.7 % (0-7); HEMATOCRIT 39.8 % (36.0-48.0); HEMOGLOBIN 13.7 g/dL (12-16); IMMATURE GRANULOCYTES 0.3 % (0-5); MCH 31.9 pg (26.0-34.0); MCHC 34.4 g/dL (31.0-37.0); MCV 92.6 fL (80.0-100.0); MEAN PLATELET VOLUME 9.8 fL (7.4-10.4); MONOCYTES 11.2 % (2-11); NEUTROPHILS 62.6 % (40-80); PLATELET COUNT 241 10x3/uL (130-400); RDW 14.4 % (11.5-14.5); WBC 10.3 10x3/uL (4.8-10.8)
[2018-04-07 04:09] LABS: ALBUMIN 3.4 g/dL (3.4-5.0); ALKALINE PHOSPHATASE 94 U/L (46-116); ALT (SGPT) 7 U/L (10-68); BILIRUBIN - TOTAL 0.77 mg/dL (0.2-1.3); CALC OSMOLALITY 257 mosm/kg (275-300); CALCIUM 8.4 mg/dL (8.5-10.1); CARBON DIOXIDE 34.7 mmol/L (21.0-32.0); CHLORIDE - SERUM 90 mmol/L (98-107); CREATININE - SERUM 0.6 mg/dL (0.6-1.3); GLUCOSE 90 mg/dL (74-106); POTASSIUM - SERUM 3.5 mmol/L (3.5-5.1); PROTEIN - SERUM 7.2 g/dL (6.4-8.2); SODIUM 129 mmol/L (136-145); UREA NITROGEN 11 mg/dL (7-18); eGFR NON AFRICAN AMERICAN > 90 mL/min (90-120)
[2018-04-08] VITALS: BP 107/48
[2018-04-08 04:00] VITALS: BP 107/88
[2018-04-08 05:51] LABS: BASOPHILS 0.3 % (0-2); EOSINOPHILS 4.2 % (0-7); HEMATOCRIT 36.8 % (36.0-48.0); HEMOGLOBIN 12.2 g/dL (12-16); IMMATURE GRANULOCYTES 0.1 % (0-5); LYMPHOCYTES 31.2 % (15-50); MCHC 33.2 g/dL (31.0-37.0); MCV 93.4 fL (80.0-100.0); MEAN PLATELET VOLUME 10.2 fL (7.4-10.4); NEUTROPHILS 55.2 % (40-80); PLATELET COUNT 239 10x3/uL (130-400); RBC 3.94 10x6/uL (4.00-5.40); RDW 14.3 % (11.5-14.5)
[2018-04-08 06:10] LABS: CALCIUM 7.8 mg/dL (8.5-10.1); CARBON DIOXIDE 27.9 mmol/L (21.0-32.0); CHLORIDE - SERUM 100 mmol/L (98-107); CREATININE - SERUM 0.5 mg/dL (0.6-1.3); POTASSIUM - SERUM 3.4 mmol/L (3.5-5.1); SODIUM 136 mmol/L (136-145); eGFR NON AFRICAN AMERICAN > 90 mL/min (90-120)
[2018-04-08 06:15] LABS: CALC OSMOLALITY 266 mosm/kg (275-300); GLUCOSE 57 mg/dL (74-106); UREA NITROGEN 4 mg/dL (7-18)
[2018-04-08 06:17] LABS: WBC 7.7 10x3/uL (4.8-10.8)
[2018-04-08 07:36] VITALS: BP 130/68
[2018-04-08 11:30] VITALS: BP 131/61
== END 2018-04-08 17:01 | disposition home or self-care (01) | DRG 388 ==
LOC: D.ER 02:32 → D.M2 06:11 → D.EDHOLD 06:11 → D.M2 08:04
PROVIDERS: Family Medicine; Internal Medicine Nephrology
DX: K56.7 Ileus, unspecified (principal); E43 Unspecified severe protein-calorie malnutrition; E87.1 Hypo-osmolality and hyponatremia; F17.213 Nicotine dependence, cigarettes, with withdrawal; C18.9 Malignant neoplasm of colon, unspecified; C78.6 Secondary malignant neoplasm of retroperitoneum and peritoneum; J44.9 Chronic obstructive pulmonary disease, unspecified; F41.9 Anxiety disorder, unspecified; F32.9 Major depressive disorder, single episode, unspecified; Z68.21 Body mass index [BMI] 21.0-21.9, adult